=== PATIENT | male | born 1970 | race Caucasian/White ===

== ENCOUNTER 2016-09-06 15:56 | Inpatient (IN) ==
--- NOTE | 2016-09-06 16:34 | Emergency Department Note ---
Disposition Clinical Impression: Weakness of left leg, Weakness of left arm, Ataxia of left upper extremity Disposition: Admitted As Inpatient Condition: Fair General Adult HPI - General Chief complaint: ED Neuro Symptoms/Deficit Stated complaint: neuro symptoms 09/04 LKW Time Seen by Provider: 09/06/16 16:23 Source: patient Limitations: no limitations - History of Present Illness Pain Scale: 0 - Related Data Previous Rx's Medication Instructions Recorded Clindamycin [Cleocin] 600 mg PO TID #42 capsule 09/25/15 Meclizine [Antivert] 25 mg PO TID #20 tablet 09/25/15 Allergies Allergy/AdvReac Type Severity Reaction Status Date / Time No Known Drug Allergies Allergy See Verified 09/25/15 09:21 Comments Past Medical History - Past Medical History Medical history: Reports: diabetes, hyperlipidemia, hypertension Psychiatric history: Reports: no psych history - Social History Smoking Status: Never smoker Smokeless Tobacco Status: Yes (snuff) Alcohol use: Reports: none Drug use: Reports: none Physical Exam - General Limitations: no limitations General appearance: alert, in no apparent distress Course Vital Signs Temperature 98.1 F 09/06/16 16:17 Pulse Rate 98 09/06/16 16:17 Respiratory Rate 16 09/06/16 16:17 Blood Pressure 168/93 09/06/16 16:17 O2 Sat by Pulse Oximetry 98 09/06/16 16:17 Temperature 98.1 F 09/06/16 16:17 Pulse Rate 95 09/06/16 17:45 Respiratory Rate 16 09/06/16 17:45 Blood Pressure 140/90 09/06/16 17:45 O2 Sat by Pulse Oximetry 96 09/06/16 17:45 Oxygen Delivery Oxygen Delivery Room Air Medical Decision Making - Lab Data Result diagrams: 09/06/16 16:49 09/06/16 16:49 Lab Results 09/06/16 09/06/16 09/06/16 Range/Units 16:06 16:29 16:49 WBC 7.9 (4.3-11.1) K/mcL RBC 5.43 (4.19-5.50) M/mcL Hgb 15.3 (12.9-16.9) g/dL Hct 43.4 (37.5-50.1) % MCV 79.9 L (83.0-100.0) fL MCH 28.2 (28.0-33.3) pg MCHC 35.3 (31.6-35.5) g/dL RDW 12.3 (11.5-14.5) % Plt Count 207 (140-400) K/mcL MPV 10.3 (9.4-12.4) fL Immature Gran % 0.4 (0-4) % Seg Neutrophils % 60.7 % Lymphocytes % 27.5 % Monocytes % 9.5 % Eosinophils % 1.5 % Basophils % 0.4 % Neutrophils # 4.8 (1.6-8.9) K/mcL Lymphocytes # 2.2 (0.6-4.6) K/mcL Monocytes # 0.8 (0.0-1.3) K/mcL Eosinophils # 0.1 (0.0-0.6) K/mcL Basophils # 0.0 (0.0-0.2) K/mcL PT (9.4-12.1) Seconds INR APTT (26.0-36.0) Seconds Sodium (136-145) mEq/L Potassium (3.5-4.5) mEq/L Chloride (98-109) mEq/L Carbon Dioxide (19-29) mEq/L BUN (8-26) mg/dL Creatinine (0.72-1.25) mg/dL Est GFR ( Amer) (> 60) Est GFR (Non-Af Amer) (> 60) BUN/Creatinine Ratio (6-26) Glucose (70-99) mg/dL POC Glucose 309 H (58-89) Calculated Osmolality (280-300) Calcium (8.6-10.8) mg/dL Troponin I (0-0.03) ng/mL Urine Color Yellow (Yellow) Urine Clarity Clear (Clear) Urine pH 6.5 (5.0-8.0) pH Units Ur Specific [place] > 1.030 H (1.010-1.025) Urine Protein Negative (Neg-Trace) mg/dL Urine Glucose (UA) >=1000 H (Normal) mg/dL Urine Ketones Negative (Negative) mg/dL Urine Blood Negative (Negative) Urine Nitrite Negative (Negative) Urine Bilirubin Negative (Negative) Urine Urobilinogen Normal (Normal) mg/dL Ur Leukocyte Esterase Negative (Negative) Ur Culture Indicated? NO (NO) 09/06/16 09/06/16 09/06/16 Range/Units 16:49 16:49 16:49 WBC (4.3-11.1) K/mcL RBC (4.19-5.50) M/mcL Hgb (12.9-16.9) g/dL Hct (37.5-50.1) % MCV (83.0-100.0) fL MCH (28.0-33.3) pg MCHC (31.6-35.5) g/dL RDW (11.5-14.5) % Plt Count (140-400) K/mcL MPV (9.4-12.4) fL Immature Gran % (0-4) % Seg Neutrophils % % Lymphocytes % % Monocytes % % Eosinophils % % Basophils % % Neutrophils # (1.6-8.9) K/mcL Lymphocytes # (0.6-4.6) K/mcL Monocytes # (0.0-1.3) K/mcL Eosinophils # (0.0-0.6) K/mcL Basophils # (0.0-0.2) K/mcL PT 13.2 H (9.4-12.1) Seconds INR 1.2 APTT 32.2 (26.0-36.0) Seconds Sodium 135 L (136-145) mEq/L Potassium 3.7 (3.5-4.5) mEq/L Chloride 99 (98-109) mEq/L Carbon Dioxide 26 (19-29) mEq/L BUN 9 (8-26) mg/dL Creatinine 0.96 (0.72-1.25) mg/dL Est GFR ( Amer) > 60 (> 60) Est GFR (Non-Af Amer) > 60 (> 60) BUN/Creatinine Ratio 9 (6-26) Glucose 346 H (70-99) mg/dL POC Glucose (58-89) Calculated Osmolality 292 (280-300) Calcium 9.2 (8.6-10.8) mg/dL Troponin I 0.00 (0-0.03) ng/mL Urine Color (Yellow) Urine Clarity (Clear) Urine pH (5.0-8.0) pH Units Ur Specific [place] (1.010-1.025) Urine Protein (Neg-Trace) mg/dL Urine Glucose (UA) (Normal) mg/dL Urine Ketones (Negative) mg/dL Urine Blood (Negative) Urine Nitrite (Negative) Urine Bilirubin (Negative) Urine Urobilinogen (Normal) mg/dL Ur Leukocyte Esterase (Negative) Ur Culture Indicated? (NO) Attestation Statement - Attestation Attestation: I examined this patient and my medical decision-making was reviewed with the MENAGERIE CARETAKER/PA/Advanced Practice Nurse/Resident Physician. I agree with the documented findings, disposition and treatment plan as described except to the extent set forth below. [id number] time provided Patient presents with a three-day history of neurologic symptoms. He has a history of hypertension and diabetes. EKG reviewed by me. Patient resting comfortably at the time of my exam. Please see the resident's note for detailed neurologic exam
--- NOTE | 2016-09-06 16:37 | Emergency Department Note ---
Disposition Clinical Impression: Weakness of left leg, Weakness of left arm, Ataxia of left upper extremity Disposition: Admitted As Inpatient Condition: Fair Referrals: Fam Zafar DO [Primary Care Provider] - Forms: ED Satisfaction Letter Time of Disposition: 17:48 Neuro HPI - General Chief Complaint: ED Neuro Symptoms/Deficit Stated Complaint: neuro symptoms 09/04 LKW Time Seen by Provider: 09/06/16 16:23 Source: patient Mode of arrival: ambulatory Limitations: no limitations Nursing Notes Reviewed: Yes Vital Signs Reviewed: Yes - History of Present Illness HPI Narrative: Patient is a 46-year-old male with past medical history of hypertension, diabetes, high cholesterol. He presents today accompanied by his due to concerns of left upper extremity, left lower extremity, left facial weakness and garbled speech. states that the patient was at work on Wednesday came home and she noticed that he was "wobbly" and kept falling to the left. Apparently the patient did not notice that this is happening. also noticed that his left face was drooping. The left face droop resolved, but the next day, the patient had worsening problems with gait. The patient on today's presentation admits to left hand weakness, difficulty with ambulation, possible weakness of the left lower extremity. There is also tingling of LLE. He also admits to fatigue. Denies any chest pain, shortness of breath, nausea, vomiting , abdominal pain, fevers. denies any previous OH, stenting, previous stroke. However, there have been multiple strokes and heart attacks in the patient's relatives in the past. - Related Data Home Medications: Previous Rx's Medication Instructions Recorded Clindamycin [Cleocin] 600 mg PO TID #42 capsule 09/25/15 Meclizine [Antivert] 25 mg PO TID #20 tablet 09/25/15 Allergies/Adverse Reactions: Allergies Allergy/AdvReac Type Severity Reaction Status Date / Time No Known Drug Allergies Allergy See Verified 09/25/15 09:21 Comments Constitutional: Denies: fever ENT ED: Denies: ear pain, throat pain Cardiovascular: Denies: chest pain, palpitations, dyspnea on exertion Respiratory: Denies: cough, dyspnea, wheezes, hemoptysis Gastrointestinal: Denies: abdominal pain, nausea, vomiting, diarrhea Genitourinary: Denies: urgency, dysuria, frequency Musculoskeletal: Denies: back pain, neck pain Integumentary: Denies: rash Neurological: Reports: weakness, paresthesias. Denies: headache, numbness Endocrine: Reports: fatigue Past Medical History - Past Medical History Attestation: Yes The following information was validated with the patient. Source: patient Medical history: Reports: diabetes, hyperlipidemia, hypertension Psychiatric history: Reports: no psych history - Social History Smoking Status: Never smoker Smokeless Tobacco Status: Yes (snuff) Alcohol use: Reports: none Drug use: Reports: none Physical Exam - General Limitations: no limitations General appearance: alert, in no apparent distress - Head Head exam: atraumatic, normocephalic, normal inspection - Eye Eye exam: Present: normal appearance, PERRL, EOMI - ENT ENT exam: normal exam, normal oropharynx, mucous membranes moist, other (No facial droop appreciated) - Neck Neck exam: Present: normal inspection, full ROM, trachea midline - Chest Chest inspection: Present: normal inspection, symmetric chest wall rise - Respiratory Respiratory exam: Present: normal lung sounds bilaterally. Absent: respiratory distress, wheezes, stridor - Cardiovascular Cardiovascular exam: Present: regular rate, normal rhythm, normal heart sounds - Abdominal Exam Abdominal exam: Present: soft, Non-Tender. Absent: tenderness, distention, guarding, rebound, rigidity - Extremities Exam Extremities exam: Present: normal inspection. Absent: tenderness, pedal edema - Neurological Exam Neurological exam: Present: CN II-XII intact, other (Sleepy on exam. Cranial nerves II through XII intact. Patient had decreased strength in hip flexion, dorsiflexion and plantar flexion of the left foot. All of these were 4 over 5 in strength. Patient also had paresthesias of the left lower extremity. Patient had weakened dispensing and measuring optician strength 4 out of 5 on the left. No appreciable facial droop on neuro exam. Patient also had past pointing of left upper extremity when performing [id number] testing.) - Psychiatric Psychiatric exam: Present: normal affect, normal mood - Skin Skin exam: Present: warm, dry, intact, normal color Course Course Narrative: Patient was hypertensive on presentation. Physical exam shows: Sleepy on exam. Cranial nerves II through XII intact. Patient had decreased strength in hip flexion, dorsiflexion and plantar flexion of the left foot. All of these were 4 over 5 in strength. Patient also had paresthesias of the left lower extremity. Patient had weakened dispensing and measuring optician strength 4 out of 5 on the left. No appreciable facial droop on neuro exam. Patient also had past pointing of left upper extremity when performing [id number] testing. NIH 4. All these symptoms began 3 days ago. Patient is well past time for TPA. We will perform basic blood work, CT of the head to assess for any bleeds. Patient will need admission at this time for further workup of stroke. A CT of the head is negative, will recommend MRI of the head and MRA of the neck for further assessment. Concern for stroke, specifically in cerebellar region. 17:46 Lab workup not concerning. Head CT read as negative for any acute intracranial abnormality. We will admit the patient for further stroke workup as mentioned above, recommend MR of the head, MRA of the neck. Michelle Gill accepted for admission. Vital Signs Temperature 98.1 F 09/06/16 16:17 Pulse Rate 98 09/06/16 16:17 Respiratory Rate 16 09/06/16 16:17 Blood Pressure 168/93 09/06/16 16:17 O2 Sat by Pulse Oximetry 98 09/06/16 16:17 Temperature 98.1 F 09/06/16 16:17 Pulse Rate 98 09/06/16 16:17 Respiratory Rate 16 09/06/16 16:17 Blood Pressure 168/93 09/06/16 16:17 O2 Sat by Pulse Oximetry 98 09/06/16 16:17 Oxygen Delivery Oxygen Delivery Room Air Neuro Symptoms/Deficit - MDM Narrative Medical decision making narrative: Patient was hypertensive on presentation. Physical exam shows: Sleepy on exam. Cranial nerves II through XII intact. Patient had decreased strength in hip flexion, dorsiflexion and plantar flexion of the left foot. All of these were 4 over 5 in strength. Patient also had paresthesias of the left lower extremity. Patient had weakened dispensing and measuring optician strength 4 out of 5 on the left. No appreciable facial droop on neuro exam. Patient also had past pointing of left upper extremity when performing [id number] testing. NIH 4. All these symptoms began 3 days ago. Patient is well past time for TPA. We will perform basic blood work, CT of the head to assess for any bleeds. Patient will need admission at this time for further workup of stroke. A CT of the head is negative, will recommend MRI of the head and MRA of the neck for further assessment. Concern for stroke, specifically in cerebellar region. 17:46 Lab workup not concerning. Head CT read as negative for any acute intracranial abnormality. We will admit the patient for further stroke workup as mentioned above, recommend MR of the head, MRA of the neck. Michelle Gill accepted for admission. - Medical Records Medical records reviewed: Yes I reviewed the patient's medical records. - Lab Data Lab results reviewed: Yes I reviewed the patient's lab results. Result diagrams: 09/06/16 16:49 09/06/16 16:49 Lab Results 09/06/16 09/06/16 09/06/16 Range/Units 16:06 16:29 16:49 WBC 7.9 (4.3-11.1) K/mcL RBC 5.43 (4.19-5.50) M/mcL Hgb 15.3 (12.9-16.9) g/dL Hct 43.4 (37.5-50.1) % MCV 79.9 L (83.0-100.0) fL MCH 28.2 (28.0-33.3) pg MCHC 35.3 (31.6-35.5) g/dL RDW 12.3 (11.5-14.5) % Plt Count 207 (140-400) K/mcL MPV 10.3 (9.4-12.4) fL Immature Gran % 0.4 (0-4) % Seg Neutrophils % 60.7 % Lymphocytes % 27.5 % Monocytes % 9.5 % Eosinophils % 1.5 % Basophils % 0.4 % Neutrophils # 4.8 (1.6-8.9) K/mcL Lymphocytes # 2.2 (0.6-4.6) K/mcL Monocytes # 0.8 (0.0-1.3) K/mcL Eosinophils # 0.1 (0.0-0.6) K/mcL Basophils # 0.0 (0.0-0.2) K/mcL PT (9.4-12.1) Seconds INR APTT (26.0-36.0) Seconds Sodium (136-145) mEq/L Potassium (3.5-4.5) mEq/L Chloride (98-109) mEq/L Carbon Dioxide (19-29) mEq/L BUN (8-26) mg/dL Creatinine (0.72-1.25) mg/dL Est GFR ( Amer) (> 60) Est GFR (Non-Af Amer) (> 60) BUN/Creatinine Ratio (6-26) Glucose (70-99) mg/dL POC Glucose 309 H (58-89) Calculated Osmolality (280-300) Calcium (8.6-10.8) mg/dL Troponin I (0-0.03) ng/mL Urine Color Yellow (Yellow) Urine Clarity Clear (Clear) Urine pH 6.5 (5.0-8.0) pH Units Ur Specific [place] > 1.030 H (1.010-1.025) Urine Protein Negative (Neg-Trace) mg/dL Urine Glucose (UA) >=1000 H (Normal) mg/dL Urine Ketones Negative (Negative) mg/dL Urine Blood Negative (Negative) Urine Nitrite Negative (Negative) Urine Bilirubin Negative (Negative) Urine Urobilinogen Normal (Normal) mg/dL Ur Leukocyte Esterase Negative (Negative) Ur Culture Indicated? NO (NO) 09/06/16 09/06/16 09/06/16 Range/Units 16:49 16:49 16:49 WBC (4.3-11.1) K/mcL RBC (4.19-5.50) M/mcL Hgb (12.9-16.9) g/dL Hct (37.5-50.1) % MCV (83.0-100.0) fL MCH (28.0-33.3) pg MCHC (31.6-35.5) g/dL RDW (11.5-14.5) % Plt Count (140-400) K/mcL MPV (9.4-12.4) fL Immature Gran % (0-4) % Seg Neutrophils % % Lymphocytes % % Monocytes % % Eosinophils % % Basophils % % Neutrophils # (1.6-8.9) K/mcL Lymphocytes # (0.6-4.6) K/mcL Monocytes # (0.0-1.3) K/mcL Eosinophils # (0.0-0.6) K/mcL Basophils # (0.0-0.2) K/mcL PT 13.2 H (9.4-12.1) Seconds INR 1.2 APTT 32.2 (26.0-36.0) Seconds Sodium 135 L (136-145) mEq/L Potassium 3.7 (3.5-4.5) mEq/L Chloride 99 (98-109) mEq/L Carbon Dioxide 26 (19-29) mEq/L BUN 9 (8-26) mg/dL Creatinine 0.96 (0.72-1.25) mg/dL Est GFR ( Amer) > 60 (> 60) Est GFR (Non-Af Amer) > 60 (> 60) BUN/Creatinine Ratio 9 (6-26) Glucose 346 H (70-99) mg/dL POC Glucose (58-89) Calculated Osmolality 292 (280-300) Calcium 9.2 (8.6-10.8) mg/dL Troponin I 0.00 (0-0.03) ng/mL Urine Color (Yellow) Urine Clarity (Clear) Urine pH (5.0-8.0) pH Units Ur Specific [place] (1.010-1.025) Urine Protein (Neg-Trace) mg/dL Urine Glucose (UA) (Normal) mg/dL Urine Ketones (Negative) mg/dL Urine Blood (Negative) Urine Nitrite (Negative) Urine Bilirubin (Negative) Urine Urobilinogen (Normal) mg/dL Ur Leukocyte Esterase (Negative) Ur Culture Indicated? (NO) - Radiology Data Radiology results reviewed: Yes I reviewed the patient's radiology results. Head CT 09/06/16 16:42 IMPRESSION: No acute intracranial abnormality. D/ / Ty Santos MD / Ty Santos MD Interpreting Provider: Ty Santos MD - EKG Data EKG attestation: Yes I reviewed and interpreted this EKG. EKG results narrative: 09/06/2016 at 16:34. Sinus tachycardia. Rate 104. QTC 408. QRS 101. No acute ST elevation or depression. There are Q waves in leads 2, 3, aVF. NIH Stroke Scale - Level of Consciousness LOC: Drowsy, but arousable - LOC Questions LOC Questions: Answers both correctly - LOC Commands LOC Commands: Performs both correctly - Best Gaze Best Gaze: Normal - Visual Visual: No visual loss - Facial Palsy Facial Palsy: Normal - Motor Arms Motor Arm-Left: No drift for 10 seconds Motor Arm-Right: No drift for 10 seconds - Motor Legs Motor Leg-Left: No drift for 5 seconds Motor Leg-Right: No drift for 5 seconds - Limb Ataxia Limb Ataxia: Present in ONE limb - Sensory Sensory: Mild to moderate loss, "not as sharp" - Best Language Best Language: No aphasia - Dysarthria Dysarthria: Mild, slurs some words - Extinction and Inattention Extinction and Inattention: Normal - NIHSS Total Score NIHSS Total Score: 4 TPA Checklist - LKW: 3-4.5 hrs Add. Contraindications Patient/family understanding: The patient/family members have been counseled and understood the risk, benefit , and alternatives of treatment. S.Xiomara - Romero Situation: Demographics, MOA Background: Presenting Complaint, Relevant PMH, Meds, & Allergies Assessment: Vital Signs, Course and respsone to treatment, Exam Concerns, Patient/Family Expectation, Pertinant Lab Results, Outstanding Labs Recommendation: Barrier(s) to disposition, Recommendation based on pending studies, treatments, or consults S.B.A.Maynor Report Given to: Michelle Jasso Repor Time: 17:47
[2016-09-06 16:43] LABS: Bilirubin,Urine Negative (Negative); Blood,Urine Negative (Negative); Clarity,Urine Clear (Clear); Color,Urine Yellow (Yellow); Glucose,Urine (UA) >=1000 mg/dL (Normal); Ketones,Urine Negative (Negative); Leukocyte Esterase,Urine Negative (Negative); Nitrite,Urine Negative (Negative); PH,Urine 6.5 pH Units (5.0-8.0); Protein,Urine Negative (Neg-Trace); Specific Gravity,Urine > 1.030 (1.010-1.025); Urobilinogen,Urine Normal (Normal)
[2016-09-06 16:56] LABS: Basophils % 0.4 %; Eosinophils # 0.1 K/mcL (0.0-0.6); Eosinophils % 1.5 %; Hematocrit 43.4 % (37.5-50.1); Hemoglobin 15.3 g/dL (12.9-16.9); Immature Granulocytes % 0.4 % (0-4); Lymphocytes # 2.2 K/mcL (0.6-4.6); Lymphocytes % 27.5 %; Mean Corpuscular HGB Conc 35.3 g/dL (31.6-35.5); Mean Corpuscular Hemoglobin 28.2 pg (28.0-33.3); Mean Corpuscular Volume 79.9 fL (83.0-100.0); Mean Platelet Volume 10.3 fL (9.4-12.4); Monocytes # 0.8 K/mcL (0.0-1.3); Monocytes % 9.5 %; Neutrophils # 4.8 K/mcL (1.6-8.9); Platelet Count 207 K/mcL (140-400); Red Blood Count 5.43 M/mcL (4.19-5.50); Red Cell Distribution Width 12.3 % (11.5-14.5); Segmented Neutrophils % 60.7 %
[2016-09-06 17:00] LABS: INR 1.2; Prothrombin Time 13.2 Seconds (9.4-12.1)
[2016-09-06 17:03] LABS: Activated Partial Thrombo Time 32.2 Seconds (26.0-36.0)
[2016-09-06 17:06] LABS: BUN/Creatinine Ratio 9 (6-26); Blood Urea Nitrogen 9 mg/dL (8-26); Calcium 9.2 mg/dL (8.6-10.8); Carbon Dioxide 26 mEq/L (19-29); Chloride 99 mEq/L (98-109); Glucose 346 mg/dL (70-99); Osmolality,Calculated 292 (280-300); Potassium 3.7 mEq/L (3.5-4.5); Sodium 135 mEq/L (136-145); eGFR For African Americans > 60 (> 60); eGFR For Non-African Americans > 60 (> 60)
[2016-09-06] MEDS ORDERED: Naloxone 0.4 MG/ML INJ IVP PRN (20:10)
[2016-09-06] MEDS ORDERED: Aspirin 325 MG TABLET PO ONE (20:54)
[2016-09-06] MEDS ORDERED: D5% in Water 1,000 ML IV PRN (21:05)
[2016-09-06] MEDS ORDERED: *HR* Dextrose 50 % in Water (Syg) 50 ML SYRINGE IVP PRN (21:05)
[2016-09-06] MEDS ORDERED: Dextrose Gel 15 GM PO PRN ×2 (21:05)
--- NOTE | 2016-09-06 21:25 | Internal Med History&Physical ---
Date of Encounter: 09/07/16 Time of Encounter: 20:00 Assessment and Plan (1) CVA (cerebral vascular accident) Current visit: Yes Status: Acute 1 patient began to experience left-sided weakness and slurred speech and facial droop 3 days ago. Patient has history of hypertension diabetes she is noncompliant with medications. Patient has strong neurovascular family history his father having CVA last year as well as a sister that from brain aneurysm. Facial droop has resolved CT of head was negative for any intracranial abnormalities. Suspect this is acute CVA we will obtain MRI as well as MRA of head and neck 2 we will give dose of aspirin now and continue daily. 3 we will start her on atorvastatin and check lipid profile 4. Monitor neuro status 5 consult neurology 6 consult PTOT and speech Qualifiers: CVA mechanism: unspecified Qualified Code(s): I63.9 - Cerebral infarction, unspecified (2) Diabetes mellitus Current visit: Yes Status: Acute 1 patient is noncompliant with medication regime. Does not check his blood sugars. Does not take his medications and he has not seen a physician in some time. We will obtain A1c. 2. Check blood sugars before meals and at bedtime with sliding scale coverage: 17 postprandial S1 80 3 diabetic diet Qualifiers: Diabetes mellitus type: type 2 Diabetes mellitus complication status: without complication Diabetes mellitus chcf insulin use: without terminal carman use Qualified Code(s): E11.9 - Type 2 diabetes mellitus without complications (3) HTN (hypertension) Current visit: Yes Status: Acute 1 patient is noncompliant with medications, systolic 140/150 will continue to monitor. Qualifiers: Hypertension type: essential hypertension Qualified Code(s): I10 - Essential (primary) hypertension (4) Hyperlipemia Current visit: Yes Status: Acute 1 we will check lipid panel in a.m. start on atorvastatin Qualifiers: Hyperlipidemia type: unspecified Qualified Code(s): E78.5 - Hyperlipidemia , unspecified (5) DVT prophylaxis Current visit: Yes Status: Acute 1 HEBERT [facility] Internal Medicine - H&P: HPI Chief complaint: L sided weakness slurred speech Admitted From: Emergency Dept Plans for Post Hospital Care: Home History of present illness: Mr. Moore is a 46 year old male past medical history of diabetes hypertension hyperlipidemia. According to the patient he came home from work on Wednesday evening and his noticed that he was wobbly and the Following to the left. He also had left-sided weakness and a left facial droop as well as garbled speech. The patient was not aware that these changes were happening. He went to bed and by Wednesday morning his left facial droop had resolved however he continued to be unsteady on his feet leading to the left side as well as continued weakness in his left arm, unable to hold onto items. His speech continued to be garbled. The symptoms continued all through Wednesday and presented today to the ER for evaluation. According to ER notes patient appeared sleepy and examined cranial nerves were intact he continued to display decreased strength 4 over 5 in his left side. He had weak lute packer or applier left side for about 5 there was no facial droop noted NIH is 4. Since the symptoms started 3 days ago the patient was well past tPA he has CT of his head which was negative for any acute intracranial abnormality. Lab work was all unremarkable he is admitted for further workup and evaluation. Upon assessment the patient denies any pain or discomfort. He is alert oriented follows simple commands cranial nerves II through XII are intact. The patient does have slurred speech and left pronator drift decreased lute packer or applier 4 out of 5 left hand, strength in upper and lower extremities left side are 4 over 5. The patient does admit that he does not check his blood sugars and is not compliant with any of his medications he has not seen a physician in some time. He denies any vision or hearing changes , numbness tingling, difficulty swallowing or headaches At present time the patient is hemodynamically stable. I reviewed this case with who agrees with plan Past Med Surg Social Fam HX - Past Medical History Medical history: diabetes, hyperlipidemia, hypertension Psychiatric history: no psych history - Past Surgical History Surgical History: no surgical history - Social History Smoking Status: Never smoker Smokeless Tobacco Status: Yes (snuff) Alcohol use: none Drug use: none - Family History Father Living Status: Still Living Hx Family Neurologic Disorders: Yes (mini-stroke) Sister Living Status: Cause of : Brain anyeursm Internal Medicine - H&P: Meds Amlodipine Besylate 5 mg PO DAILY 09/07/16 [History] Citalopram Hydrobromide [Citalopram HBr] 10 mg PO DAILY 09/07/16 [History] Losartan/Hydrochlorothiazide [Hyzaar 100-25 Tablet] 0.5 each PO DAILY 09/07/16 [ History] Metformin HCl [Glucophage] 1,000 mg PO BID 09/07/16 [History] Pravastatin Sodium [Pravachol] 40 mg PO DAILY 09/07/16 [History] Allergies No Known Drug Allergies Allergy (Verified 09/25/15 09:21) See Comments All Systems PM: A 10-system review of systems was performed and is negative for pertinent findings except as documented above in the HPI. - Constitutional Constitutional: no chills, no fever(s), no night sweats - EENT Eyes: no change in vision, no discharge, no pain, no photophobia - Cardiovascular Cardiovascular ROS IM: no chest pain, no diaphoresis, no dyspnea, no lightheadedness, no palpitations, no syncope - Respiratory Respiratory: no cough, no dyspnea, no wheezing, no excessive phlegm production - Gastrointestinal Gastrointestinal: no abdominal pain, no diarrhea, no hematemesis, no hematochezia, no melena, no nausea, no vomiting - Musculoskeletal Musculoskeletal ROS IM: no numbness, no tingling - Integumentary Integumentary IM: no rash, no unusual bruising - Neurological Neurological ROS: abnormal gait, abnormal speech, paresthesias, weakness - Constitutional Vitals: Temp Pulse Resp BP Pulse Ox 98.2 F 88 18 158/109 98 09/06/16 19:09 09/06/16 19:09 09/06/16 19:09 09/06/16 19:09 09/06/16 19:09 General appearance: Present: A&O X 3, answers questions appropriately - Head Head exam: Present: atraumatic, normocephalic - Eye Eye exam: Present: PERRL, conjuntiva pink, sclera anicteric Pupils: Present: PERRL - Neck Neck exam general surgery: Present: supple, trachea midline. Absent: lymphadenopathy - Respiratory Respiratory exam: Present: CTAB. Absent: accessory muscle use, rales, rhonchi, wheezes - Cardiovascular Cardiovascular exam: Present: RRR, +S1, +S2. Absent: diastolic murmur, gallop, rubs, systolic murmur - GI/Abdominal GI/Abdominal exam: Present: normal bowel sounds, soft, no peritoneal signs. Absent: distended, tenderness - Extremities Exam Extremities exam: Present: warm, radial pulses palpable and symetrical. Absent : calf tenderness, cyanotic, pedal edema - Neurological Exam Neurological exam: Present: CN II-XII intact, oriented X3, no focal deficits, pronater drift, speech deficit. Absent: facial droop - Expanded Neurological Exam Speech: Present: slurred Neuro motor strength exam: LUE: 4, RUE: 5, LLE: 4, RLE: 5 Coma Scale Motor Response: Obeys Commands Coma Scale Verbal Response: Oriented Internal Med - H&P Results - Labs CBC & Chem 7: 09/06/16 16:49 09/06/16 16:49 - Diagnostic Studies CT scan - head Additional comments: Negative for any intracranial abnormality per radiology read
[2016-09-06 21:28] LABS: Hemoglobin A1C 8.7 %
[2016-09-06] MEDS: Insulin LISPRO 300 UNITS/3 ML VIAL SQ SCH (21:52)
[2016-09-07 04:14] LABS: Basophils % 0.5 %; Eosinophils # 0.2 K/mcL (0.0-0.6); Eosinophils % 2.1 %; Hematocrit 41.4 % (37.5-50.1); Hemoglobin 14.4 g/dL (12.9-16.9); Immature Granulocytes % 0.3 % (0-4); Lymphocytes # 2.9 K/mcL (0.6-4.6); Lymphocytes % 37.2 %; Mean Corpuscular HGB Conc 34.8 g/dL (31.6-35.5); Mean Corpuscular Hemoglobin 27.8 pg (28.0-33.3); Mean Corpuscular Volume 79.9 fL (83.0-100.0); Mean Platelet Volume 10.3 fL (9.4-12.4); Monocytes # 0.8 K/mcL (0.0-1.3); Monocytes % 10.4 %; Neutrophils # 3.8 K/mcL (1.6-8.9); Platelet Count 201 K/mcL (140-400); Red Blood Count 5.18 M/mcL (4.19-5.50); Red Cell Distribution Width 12.1 % (11.5-14.5); Segmented Neutrophils % 49.5 %
[2016-09-07 04:33] LABS: BUN/Creatinine Ratio 10 (6-26); Blood Urea Nitrogen 9 mg/dL (8-26); Calcium 9.5 mg/dL (8.6-10.8); Carbon Dioxide 25 mEq/L (19-29); Chloride 102 mEq/L (98-109); Chol/HDL Ratio 5.2 (0-4.9); Cholesterol 141 mg/dL (< 200); Glucose 310 mg/dL (70-99); HDL Cholesterol 27 mg/dL (40-59); LDL Cholesterol,Calculated 84 mg/dL (0-99); Osmolality,Calculated 294 (280-300); Potassium 3.8 mEq/L (3.5-4.5); Sodium 137 mEq/L (136-145); Triglycerides 151 mg/dL (< 150); eGFR For African Americans > 60 (> 60); eGFR For Non-African Americans > 60 (> 60)
[2016-09-07] MEDS: Pantoprazole 40 MG VIAL IVP SCH (08:45)
[2016-09-07] MEDS: Aspirin 81 MG TAB.CHEW PO SCH (08:46)
[2016-09-07] MEDS: Insulin LISPRO 300 UNITS/3 ML VIAL SQ SCH ×4 (08:46→20:05)
--- NOTE | 2016-09-07 12:02 | ECHO - Doppler Report ---
Echo with Saline Contrast Name: Scooter Moore Date of Study: 09/07/2016 Date: 1970 Ht: 70.0 in Medical Record#: [id number] Age: 46 Wt: 225.0 lb Gender: Male BSA: 2.19 Order #: [id number] Location: [facility] Room #: 3B36 Reading Physician: Ty Mcdonald DO, AWAIS, MARY PEÑA Sleep Technologist: MARGUERITE BledsoeT, RDTJ Ordering Physician: Gaye Leavitt CNP Primary Physician: Fam Zafar DO Indications: Cerebrovascular Accident Impressions: LVEF 65%. Normal LV chamber size and function. Mild concentric left ventricular hypertrophy. Mild left ventricular diastolic dysfunction. Normal right ventricular structure and function. No significant valvular dysfunction. No evidence of PFO with agitated saline contrast. Left Ventricular Wall Motion: Rest Echo Findings All wall segments showed normal motion. Findings: Study Quality * Technically adequate exam. ECG Findings * Normal sinus rhythm. Left Ventricle * LVEF 65%. * Normal LV chamber size and function. * Mild concentric left ventricular hypertrophy. * Mild left ventricular diastolic dysfunction. Right Ventricle * Normal right ventricular structure and function. Left Atrium * Normal left atrial size. Right Atrium * Normal right atrial size. Interatrial Septum * No evidence of PFO with agitated saline contrast. Aortic Valve * Trileaflet aortic valve with normal function. * No aortic regurgitation. * No aortic stenosis. Mitral Valve * Normal mitral valve structure and function. * No mitral regurgitation. * No mitral stenosis. Tricuspid Valve * Normal tricuspid valve structure and function. * * No tricuspid regurgitation. * No evidence of pulmonary hypertension. Pulmonic Valve * Pulmonic valve is not well visualized. Aorta * Normally sized aortic root. Pericardium * The pericardium appears normal. IVC * Normal IVC dimensions and inspiratory collapse. Pulmonary Artery * Normal visualized portions of the main pulmonary artery. History Hypertension Diabetes Hypercholesteremia Family History of CAD Contrast: Agitated saline 20 ml. Measurements: BP: 145/ 87 2D Normal Values RVIDd: 3.10 cm <2.7 cm IVSd: 1.30 cm 0.6 - 1.0 cm LVIDd: 4.00 cm 3.7 - 5.6 cm LVPWd: 1.30 cm 0.6 - 1.1 cm LVIDs: 2.60 cm 1.5 - 3.6 cm AO: 2.90 cm < 4.0 cm LA: 3.50 cm 2.0 - 4.0cm %FS: 35.00 cm >25 % LA volume: 29 Mitral Valve Peak E:.78 m/sec Peak A:1.04 m/sec E/A Ratio:0.8 Updated by Ty Mcdonald DO, AWAIS, MARY PEÑA on 09/07/2016 11:57:22 AM electronically signed on 09/07/2016 11:58:13 AM with status of Final Wall Motion Hernandez: 1=Normal, 2=Hypokinesis, 3=Akinesis, 4=Dyskinesis, 5=Aneurysmal, 6=Hyperkinetic, X=Not Visualized (Blank)=Missing
[2016-09-07] MEDS: *HR* Heparin 5,000 UNIT/ML VIAL SQ SCH ×2 (13:47→18:18)
--- NOTE | 2016-09-07 14:24 | Internal Med Progress Note ---
Date of Encounter: 09/07/16 Time of Encounter: 13:30 - Assessment and plan (1) CVA (cerebral vascular accident) Current Visit: Yes Status: Acute Assessment and plan: Patient now asymptomatic. No focal neurological weaknesses or speech deficits noted on examination. Head CT negative. Hypertensive this morning however blood pressure came down after his morning meds. Urinalysis negative. Echocardiogram unremarkable with ejection fraction 65% and mild diastolic dysfunction. Patient euvolemic on examination. MRA and MRI of the brain and neck pending. Neurology on board. OT and PT have recommended outpatient therapy which will need to be set up by his primary care provider. Disposition pending clinical outcomes. Possible discharge tomorrow. ITS Impressions Head CT 09/06/16 16:42 IMPRESSION: No acute intracranial abnormality. D/ / Ty Santos MD / Ty Santos MD Interpreting Provider: Ty Santos MD Echocardiogram impressions: LVEF 65%. Normal LV chamber size and function. Mild concentric left jugular hypertrophy. Mild left ventricular diastolic dysfunction. Normal right ventricular structure and function. No significant valve dysfunction. No Evidence of PFO with agitated saline contrast. Qualifiers: CVA mechanism: unspecified Qualified Code(s): I63.9 - Cerebral infarction, unspecified (2) Weakness of left leg Current Visit: Yes Status: Resolved (3) Weakness of left arm Current Visit: Yes Status: Resolved (4) DVT prophylaxis Current Visit: Yes Status: Acute Assessment and plan: Subcutaneous heparin (5) Diabetes mellitus Current Visit: Yes Status: Chronic Assessment and plan: Poorly controlled at home with an A1c of 8.7%. Patient readily endorses noncompliance. Will continue to attend education while he is admitted. Continue sliding-scale while admitted. Qualifiers: Diabetes mellitus type: type 2 Diabetes mellitus complication status: without complication Diabetes mellitus mcfp insulin use: without mcfp use Qualified Code(s): E11.9 - Type 2 diabetes mellitus without complications (6) HTN (hypertension) Current Visit: Yes Status: Chronic Assessment and plan: Hypertensive this morning however blood pressure came down after his a.m. meds, will continue to trend and adjust medications as indicated. Qualifiers: Hypertension type: essential hypertension Qualified Code(s): I10 - Essential (primary) hypertension (7) Hyperlipemia Current Visit: Yes Status: Chronic Assessment and plan: Lipid panel unremarkable, recommend continuation of statin and low-cholesterol diet Qualifiers: Hyperlipidemia type: unspecified Qualified Code(s): E78.5 - Hyperlipidemia , unspecified - Subjective Interval history: Patient seen and examined. On examination, patient sitting upright in bed watching television. Patient denies weakness or difficulty with his speech. He denies any vision changes. He states he is eating well. - Constitutional Vitals: Temp Pulse Resp BP Pulse Ox 97.6 F 89 16 138/80 95 09/07/16 14:14 09/07/16 14:14 09/07/16 14:14 09/07/16 14:14 09/07/16 14:14 General appearance: Present: A&O X 3, pleasant, no acute distress, answers questions appropriately - Head Head exam: Present: atraumatic, normocephalic - Eye Eye exam: Present: PERRL, conjuntiva pink, sclera anicteric Pupils: Present: PERRL - Neck Neck exam general surgery: Present: supple, trachea midline. Absent: lymphadenopathy - Respiratory Respiratory exam: Present: CTAB. Absent: accessory muscle use, rales, respiratory distress, rhonchi, wheezes - Cardiovascular Cardiovascular exam: Present: RRR, +S1, +S2. Absent: diastolic murmur, gallop, rubs, systolic murmur - GI/Abdominal GI/Abdominal exam: Present: normal bowel sounds, soft, no peritoneal signs. Absent: distended, tenderness - Extremities Exam Extremities exam: Present: warm, radial pulses palpable and symetrical. Absent : calf tenderness, cyanotic, pedal edema - Neurological Exam Neurological exam: Present: alert, CN II-XII intact, oriented X3, no focal deficits, strengths equal and symetr throughout. Absent: pronater drift, facial droop, speech deficit - Skin Skin exam: Present: dry, intact, normal color, warm Internal Medicine: Result - Labs CBC & Chem 7: 09/07/16 04:03 09/07/16 04:03 Labs: Short CBC 09/07/16 Range/Units 04:03 WBC 7.8 (4.3-11.1) K/mcL Hgb 14.4 (12.9-16.9) g/dL Hct 41.4 (37.5-50.1) % Plt Count 201 (140-400) K/mcL Neutrophils # 3.8 (1.6-8.9) K/mcL BMP 09/07/16 04:03 Sodium 137 Potassium 3.8 Chloride 102 Carbon Dioxide 25 BUN 9 Creatinine 0.94 Glucose 310 H Calcium 9.5 - ABG Interpretation ABG results: PT/INR, D-dimer PT 13.2 Seconds (9.4-12.1) H 09/06/16 16:49 - VTE Documentation of Mechanical Device: Graduated compression elastic hosiery Consult Discharge Plan - Plan Referrals: Fam Zafar DO [Primary Care Provider] -
[2016-09-07] MEDS ORDERED: Acetaminophen 325 MG TABLET PO PRN (16:16)
--- NOTE | 2016-09-07 18:50 | Neurology Progress Note ---
Date of Encounter: 09/07/16 Time of Encounter: 18:48 Subjective Interval history: Patient is currently out of his room for testing. I will perform a complete neurologic consultation tomorrow. Sridhar Zafar D.O. Objective - Constitutional Vitals: Temp Pulse Resp BP Pulse Ox 97.8 F 88 16 134/90 95 09/07/16 18:00 09/07/16 18:00 09/07/16 18:00 09/07/16 18:00 09/07/16 14:46 - VTE Documentation of Mechanical Device: Graduated compression elastic hosiery Results - Laboratory Findings CBC and BMP: 09/07/16 04:03 09/07/16 04:03 Abnormal lab findings: Abnormal lab results MCV 79.9 fL (83.0-100.0) L 09/07/16 04:03 MCH 27.8 pg (28.0-33.3) L 09/07/16 04:03 PT 13.2 Seconds (9.4-12.1) H 09/06/16 16:49 Glucose 310 mg/dL (70-99) H 09/07/16 04:03 POC Glucose 327 (58-89) H 09/07/16 16:24 Hemoglobin A1c 8.7 % (-5.6) H 09/06/16 16:49 Triglycerides 151 mg/dL (< 150) H 09/07/16 04:03 HDL Cholesterol 27 mg/dL (40-59) L 09/07/16 04:03 Cholesterol/HDL Ratio 5.2 (0-4.9) H 09/07/16 04:03 Ur Specific [place] > 1.030 (1.010-1.025) H 09/06/16 16:06 Urine Glucose (UA) >=1000 mg/dL (Normal) H 09/06/16 16:06 Consult Discharge Plan - Plan Referrals: Fam Zafar DO [Primary Care Provider] -
--- NOTE | 2016-09-07 19:41 | Electrocardiograph Report ---
[address] [place] [address] Test Date: 2016-09-06 Pat Name: Scooter Moore Department: 105 Room: 3B Gender: M Prototype Model Maker: : 1970 Requested By: Naina Soto Order Number: [id number] Reading MD: Ty Mcdonald DO Measurements Intervals [place] Rate: 104 P: 29 RI: 140 QRS: -28 QRSD: 101 T: 37 QT: 347 QTc: 408 Interpretive Statements SINUS TACHYCARDIA INFERIOR MYOCARDIAL INFARCTION, PROBABLY OLD Electronically Signed On 09-07-2016 19:39:33 EST by Ty Mcdonald DO
[2016-09-08] MEDS: *HR* Heparin 5,000 UNIT/ML VIAL SQ SCH (05:19)
--- NOTE | 2016-09-08 07:16 | Neurology - Consult Note ---
Date of Encounter: 09/08/16 Time of Encounter: 07:11 Assessment and Plan (1) Acute brainstem infarction Current Visit: Yes Status: Acute This gentleman has unfortunately experienced an acute pontine infarct. Certainly he is very young for this type of event however it seems that he may have a family history of accelerated athero-sclerotic vascular disease, and he also has other risk factors including uncontrolled hypertension, and uncontrolled diabetes. His hemoglobin A1c was 8.7, and he admits that he does not take his medication is recommended. He also uses smokeless tobacco. I am concerned that he does have evidence of atherosclerotic disease in the posterior circulation. Echo cardiogram was negative. Recommend starting him on Plavix 75 mg daily which is reportedly superior for events occurring in the posterior circulation. Strict management of his risk factors as paramount. We will also recommend a hypercoagulable workup, we will go ahead and order a CTA of the brain and neck is recommended by radiology. I would also recommend that this gentleman see a neuro-interventionalist, perhaps Dr. Cohen at [facility], to consider whether or not additional intervention may be necessary to reduce this gentleman's risk for future events. Tobacco cessation and will also be paramount. Stroke protocol orders during hospitalization History of Present Illness HPI: Mr. Moore is a 46 year old male who was seen for neurologic consultation secondary to an acute pontine infarct. The event actually occurred 3 days of soap prior to being admitted to the hospital when he began to experience slurring of the speech left facial droop and clumsiness of the left upper extremity. The facial droop has improved however he maintains clumsiness of left upper extremity and dysarthric speech. He states that he had a mild headache on the day of admission however this is since resolved. He denies any visual changes. He does have a known history of diabetes which is poorly controlled hypertriglyceridemia and hypertension. He also does smokeless tobacco, he denies recreational drugs. He denies taking aspirin prior to this event. MRI scan of the brain with diffusion imaging does reveal an acute left pontine infarct, with a smaller area of infarction in the left centrum semiovale. Echocardiogram was unrevealing. MRA scanning reveals mild irregular narrowing of the origin of the basilar artery as well as of the right vertebral artery. CT scan of the brain was recommended for further assessment of this. Past Med Surg Social Fam HX - Past Medical History Medical history: diabetes, hyperlipidemia, hypertension Psychiatric history: no psych history - Past Surgical History Surgical History: no surgical history - Social History Smoking Status: Never smoker Smokeless Tobacco Status: Yes (snuff) Alcohol use: none Drug use: none - Family History Father Living Status: Still Living Hx Family Neurologic Disorders: Yes (mini-stroke) Sister Living Status: Cause of : Brain anyeursm Medications and Allergies Amlodipine Besylate 5 mg PO DAILY 09/07/16 [History] Citalopram Hydrobromide [Citalopram HBr] 10 mg PO DAILY 09/07/16 [History] Losartan/Hydrochlorothiazide [Hyzaar 100-25 Tablet] 0.5 each PO DAILY 09/07/16 [ History] Metformin HCl [Glucophage] 1,000 mg PO BID 09/07/16 [History] Pravastatin Sodium [Pravachol] 40 mg PO DAILY 09/07/16 [History] Allergies No Known Drug Allergies Allergy (Verified 09/25/15 09:21) See Comments All Systems: A 10-system review of systems was performed and is negative for pertinent findings except as documented above in the HPI. Review of Systems: 10 point review of systems is consistent with a history of present illness and otherwise negative. Physical Examination - Vital Signs Vital Signs: Initial Vital Signs Temp Pulse Resp BP Pulse Ox 98.1 F 98 16 168/93 98 09/06/16 16:17 09/06/16 16:17 09/06/16 16:17 09/06/16 16:17 09/06/16 16:17 - Neurologic Motor examination - right side: 5/5: deltoids, biceps, triceps, wrist flexion, wrist extension, business improvement manager, hip flexors, tibialis Anterior, quadriceps, toe extension (EHL), plantarflexion Motor examination - left side: 3/5: deltoids, biceps, triceps, hip flexors, business improvement manager , 4/5: quadriceps, tibialis Anterior, toe extension (EHL), plantarflexion Detailed sensory examination: other (There is hypoesthesia of the left upper extremity.) Reflex and gait examination: other (Deep tendon reflexes are diminished throughout.) Mental Status Examination: awake, alert, oriented to person, oriented to place, oriented to time, follows commands appropriately, answers questions appropriately, no agnosia, no aphasia, no aproxia Cranial nerve examination: PERRL, EOMI, visual wyatt intact, corneal reflexes brisk symmetrically, mastication intact, no facial asymmetry is present, hearing is intact symmetrically Ataxia: left upper extremity Results - Laboratory Findings CBC and BMP: 09/07/16 04:03 09/07/16 04:03 Abnormal lab findings: Abnormal lab results MCV 79.9 fL (83.0-100.0) L 09/07/16 04:03 MCH 27.8 pg (28.0-33.3) L 09/07/16 04:03 PT 13.2 Seconds (9.4-12.1) H 09/06/16 16:49 Glucose 310 mg/dL (70-99) H 09/07/16 04:03 POC Glucose 267 (58-89) H 09/07/16 19:53 Hemoglobin A1c 8.7 % (-5.6) H 09/06/16 16:49 Triglycerides 151 mg/dL (< 150) H 09/07/16 04:03 HDL Cholesterol 27 mg/dL (40-59) L 09/07/16 04:03 Cholesterol/HDL Ratio 5.2 (0-4.9) H 09/07/16 04:03 Ur Specific [place] > 1.030 (1.010-1.025) H 09/06/16 16:06 Urine Glucose (UA) >=1000 mg/dL (Normal) H 09/06/16 16:06 Consult Discharge Plan - Plan Referrals: Fam Zafar DO [Primary Care Provider] -
[2016-09-08] MEDS: Aspirin 81 MG TAB.CHEW PO SCH (08:21)
[2016-09-08] MEDS: Pantoprazole 40 MG VIAL IVP SCH (08:21)
[2016-09-08] MEDS: Insulin LISPRO 300 UNITS/3 ML VIAL SQ SCH ×2 (08:21→12:49)
[2016-09-08 11:49] VITALS: BP 132/79
--- NOTE | 2016-09-08 14:28 | Discharge Summary ---
Date of Encounter: 09/08/16 Time of Encounter: 14:00 - Discharge Diagnosis (1) Acute brainstem infarction Priority: Primary Status: Acute Comments: Brain MRI consistent with acute pontine infarct. Patient continues to complain of left gas examiner strength weakness and mild left leg weakness. Seen and evaluated by occupational physical therapy both of whom recommended outpatient therapy that will need to be set up by his primary care provider. Given moderate stenosis seen on MRA of head and neck, neurology has recommended referring the patient to at [facility] for outpatient followup with neurointerventionalist. Regarding risk factor modification, patient readily endorses noncompliance with his diabetes as well as with monitoring his blood pressure. Education given during this visit. We will add Plavix to his regimen. (2) CVA (cerebral vascular accident) Priority: Primary Status: Acute Qualifiers: CVA mechanism: unspecified Qualified Code(s): I63.9 - Cerebral infarction, unspecified (3) Weakness of left leg Priority: Primary Status: Acute Comments: mild weakness on examination left hand 3/5- he is right handed; right leg 5/5. OT and PT recommend outpatient therapy. (4) Weakness of left arm Priority: Primary Status: Acute (5) DVT prophylaxis Priority: Primary Status: Acute Comments: Subcutaneous heparin while admitted (6) Diabetes mellitus Priority: Secondary Status: Chronic Comments: Poorly controlled at home with an A1c of 8.7%. Patient readily endorses noncompliance. Educated while admitted; followup outpatient. Qualifiers: Diabetes mellitus type: type 2 Diabetes mellitus complication status: without complication Diabetes mellitus mcfp insulin use: without beet flumer use Qualified Code(s): E11.9 - Type 2 diabetes mellitus without complications (7) HTN (hypertension) Priority: Secondary Status: Chronic Comments: Continue home medications of losartan/HCTZ 100/25, and amlodipine 5 mg daily. Recommend daily blood pressure checks at home, and following up outpatient. Qualifiers: Hypertension type: essential hypertension Qualified Code(s): I10 - Essential (primary) hypertension (8) Hyperlipemia Priority: Secondary Status: Chronic Comments: Lipid panel unremarkable. Recommend continue statin and low-cholesterol diet. Qualifiers: Hyperlipidemia type: unspecified Qualified Code(s): E78.5 - Hyperlipidemia , unspecified - Discharge Medications Prescriptions: Aspirin 81 mg PO DAILY #30 tab.chew Clopidogrel Bisulfate [Plavix] 75 mg PO DAILY #30 tablet Home Medications: Amlodipine Besylate 5 mg PO DAILY 09/07/16 [History] Citalopram Hydrobromide [Citalopram HBr] 10 mg PO DAILY 09/07/16 [History] Losartan/Hydrochlorothiazide [Hyzaar 100-25 Tablet] 0.5 each PO BID 09/07/16 [ History] Metformin HCl [Glucophage] 1,000 mg PO BID 09/07/16 [History] Pravastatin Sodium [Pravachol] 40 mg PO DAILY 09/07/16 [History] Aspirin 81 mg PO DAILY #30 tab.chew 09/08/16 [Rx] Clopidogrel Bisulfate [Plavix] 75 mg PO DAILY #30 tablet 09/08/16 [Rx] Allergies/Adverse Reactions: Allergies No Known Drug Allergies Allergy (Verified 09/08/16 08:59) See Comments Procedures/tests Complete & Pending: Procedures Performed prior 72 hours Category Date Time Status CT angio head [CT] Stat Cat Scan 09/08/16 07:[address] angio neck [CT] Stat Cat Scan 09/08/16 07:25 Draft MR angio head wo con [MR] Routine MRI 09/07/16 17:53 Completed MR angio neck wo/w con [MR] Routine MRI 09/07/16 17:53 Completed MR head/brain wo con [MR] Routine MRI 09/07/16 17:53 Completed ECG 12 lead ECG [ECG] Routine Y 09/06/16 16:34 Completed EV echocardiogram Routine Y 09/07/16 21:01 Completed Date of admission: 09/06/16 20:46 Primary care physician: Fam Zafar Consults: 09/06/16 21:01 Consult to Physical Therapy [CONS] Routine Comment: Evaluate, develop and implement POC 09/06/16 21:04 Consult to Neurology [CONS] Routine Consulting Provider: [facility] Reason for Consult: L side weaknes facial droop, slurred speech that began 3 days ago Time Notified: 21:05 Call Completed: No 09/06/16 21:19 Consult to Occupational Therapy [CONS] Routine Comment: Evaluate, develop and implement POC 09/06/16 21:20 Consult to Speech Therapy [CONS] Routine Comment: Evaluate, develop and implement POC Reason for Consult: slurred speech- stroke sx Time Notified: 21:21 Call Completed: No Discharging clinician: Naina Soto Anticipated date of discharge: 09/08/16 (OT PT rec outpatient treatment) - Patient Status Disposition: Home, Self-Care Condition: Fair Functional capacity at discharge: independent ambulation Overall status at discharge: patient is progressing back to baseline - Discharge Instructions Follow Up With: Fam Zafar DO [Primary Care Provider] - Montez Cohen [Non-Partnered Physician] - Additional Instructions: Follow-up with primary care provider within one to two weeks follow-up with Dr. Cohen at [facility] when available. - Diet and Activity Activity: increase activity as tolerated, return to work once cleared by your PCP/specialist Diet: diabetic diet, low fat, low cholesterol, low salt diet Hospital course: Mr. Moore is a 46 year old male with past medical history of uncontrolled diabetes, uncontrolled hypertension, and hyperlipidemia. Patient stated he came home from work on Wednesday evening and his noticed that he was wobbly and while ambulating he would fall to the left. He at that time he also had left-sided weakness and left-sided facial droop as well as garbled speech. He went to bed that night and by Wednesday morning, the left-sided facial droop had resolved. He continued to be unsteady on his feet and continued to have weakness in his left arm. He was unable to hold items in his left hand. His speech continued to be garbled. The symptoms continued all throughout Wednesday and he presented to the emergency department on Wednesday for evaluation. Decreased gas examiner strength in his left hand as well as mild weakness in his left leg was noted in the emergency department. His speech was clear and intelligible. Workup in the emergency department unremarkable. Head CT negative. Patient was admitted to the hospitalist service for further evaluation and management. Urinalysis negative. Echocardiogram unremarkable with ejection fraction 65% and mild diastolic dysfunction. Patient euvolemic on examination. Brain MRI revealed acute ischemic plaque in her infarcts in the right kendall and the left frontal barton radiata white matter. Of note, he was not a candidate for TPA given that his symptoms had proceeded for 3 days prior to his presentation. Head and neck MRA revealing stenosis to the right vertebral artery and basilar artery. Recommendation for CTA at that time. CTA revealed no flow limiting stenosis of the cervical carotid or vertebral arteries but revealed moderate right and mild left irregularities of the vertebral arteries with unchanged moderate focal stenosis of the basilar artery. Neurology was brought on board who recommended initiation of Plavix and follow up with a neurointerventionalist - Dr Cohen at [facility] for further outpatient followup. Hypercoagulable workup was also initiated and at time of discharge, several blood tests are still pending including anti- thrombin 3, cardiolipin IgG, factor V Leiden, lupus anticoagulant, and protein C - recommend follow-up outpatient for these results. Regarding risk factor modification, we attempted education on better control of his diabetes but the patient was not compliant. We also encouraged him to take check his blood pressure daily and keep a local for his primary care team. He was also started on a baby aspirin. His statin was continued. He was evaluated by OT and PT who recommended outpatient therapy which would need to be set up by his primary care provider. He remained alert and oriented 3 throughout this admission with no deficits to his speech. He did continue to have weakness in his left hand and mild weakness in his left leg upon disposition. He was discharged home in stable condition with close outpatient follow-up recommended. ITS Impressions Head CT 09/06/16 16:42 IMPRESSION: No acute intracranial abnormality. D/ / Ty Santos MD / Ty Santos MD Interpreting Provider: Ty Santos MD Brain MRI 09/07/16 17:53 IMPRESSION: 1. Acute ischemic lacunar infarcts in the right kendall and left frontal barton radiata white matter. 2. No evidence of intracranial hemorrhage or mass. 3. Mild chronic white matter microvascular ischemic changes. 4. Mild irregular stenosis of the intracranial right vertebral artery moderate focal stenosis at the origin of the basilar artery. 5. Normal MRA of the neck. RECOMMENDATIONS: CT angiogram of the head and neck to evaluate vertebrobasilar pathology. D/ / Zane Thornton MD / Zane Thornton MD Interpreting Provider: Zane Thornton MD Head MRA 09/07/16 17:53 IMPRESSION: 1. Acute ischemic lacunar infarcts in the right kendall and left frontal barton radiata white matter. 2. No evidence of intracranial hemorrhage or mass. 3. Mild chronic white matter microvascular ischemic changes. 4. Mild irregular stenosis of the intracranial right vertebral artery moderate focal stenosis at the origin of the basilar artery. 5. Normal MRA of the neck. RECOMMENDATIONS: CT angiogram of the head and neck to evaluate vertebrobasilar pathology. D/ / Zane Thornton MD / Zane Thornton MD Interpreting Provider: Zane Thornton MD Neck MRA 09/07/16 17:53 IMPRESSION: 1. Acute ischemic lacunar infarcts in the right kendall and left frontal barton radiata white matter. 2. No evidence of intracranial hemorrhage or mass. 3. Mild chronic white matter microvascular ischemic changes. 4. Mild irregular stenosis of the intracranial right vertebral artery moderate focal stenosis at the origin of the basilar artery. 5. Normal MRA of the neck. RECOMMENDATIONS: CT angiogram of the head and neck to evaluate vertebrobasilar pathology. D/ / Zane Thornton MD / Zane Thornton MD Interpreting Provider: Zane Thornton MD Head CTA 09/08/16 07:25 IMPRESSION: 1. Hypo density in the right kendall compatible with known infarct. 2. No evidence of hemorrhagic transformation. No mass effect or midline shift. 3. Unchanged moderate focal stenosis at the origin of the basilar artery. 4. Moderate right and mild left irregularities of the V4 segments of the vertebral arteries. D/ / Gregg Meléndez MD / Gregg Meléndez MD Interpreting Provider: Gregg Meléndez MD Neck CTA 09/08/16 07:25 IMPRESSION: No flow-limiting stenosis of the cervical carotid or vertebral arteries. D/ / 09/08/2016 09:20:03 Faith Holland MD / bobbi Interpreting Provider: Faith Holland MD Echocardiogram impressions: LVEF 65%. Normal LV chamber size and function. Mild concentric left jugular hypertrophy. Mild left ventricular diastolic dysfunction. Normal right ventricular structure and function. No significant valve dysfunction. No Evidence of PFO with agitated saline contrast. - Time Spent with Patient Total time spent providing and/or coordinating discharge services: - Constitutional Vitals: Temp Pulse Resp BP Pulse Ox 98.6 F 82 16 132/79 97 09/08/16 11:49 09/08/16 11:49 09/08/16 11:49 09/08/16 11:49 09/08/16 11:49 General appearance: Present: A&O X 3, pleasant, no acute distress, answers questions appropriately - Head Head exam: Present: atraumatic, normocephalic - Eye Eye exam: Present: PERRL, conjuntiva pink, sclera anicteric Pupils: Present: PERRL - Neck Neck exam general surgery: Present: supple, trachea midline. Absent: lymphadenopathy - Respiratory Respiratory exam: Present: CTAB. Absent: accessory muscle use, rales, respiratory distress, rhonchi, wheezes - Cardiovascular Cardiovascular exam: Present: RRR, +S1, +S2. Absent: diastolic murmur, gallop, rubs, systolic murmur - GI/Abdominal GI/Abdominal exam: Present: normal bowel sounds, soft, no peritoneal signs. Absent: distended, tenderness - Extremities Exam Extremities exam: Present: warm, radial pulses palpable and symetrical. Absent : calf tenderness, cyanotic, pedal edema - Neurological Exam Neurological exam: Present: alert, CN II-XII intact, oriented X3, no focal deficits. Absent: strengths equal and symetr throughout, pronater drift, facial droop, speech deficit - Expanded Neurological Exam Neurological exam expanded: Present: protecting the airway Patient oriented to: Present: person, place, time Speech: Present: fluid speech Cranial Nerves: EOM's intact PM: Normal, gag reflex PM: Normal Neuro motor strength exam: LUE: 3, RUE: 5, LLE: 4, RLE: 5 Coma Scale Eye Opening: Spontaneous Coma Scale Motor Response: Obeys Commands Coma Scale Verbal Response: Oriented Coma Scale Total: 15 - Skin Skin exam: Present: dry, intact, normal color, warm - VTE Documentation of Mechanical Device: Graduated compression elastic hosiery
[2016-09-10 11:26] LABS: Protein C, Functional 144 % (83-168)
[2016-09-10 16:40] LABS: APTT (LE Anticoag) 43 sec (32-48); Diluted Russell Viper Venom 33 sec (33-44); PT (LE-Anticoag) 13.1 sec (12.0-15.5)
== END 2016-09-08 15:48 | disposition home or self-care (01) | DRG 65 ==
LOC: 3BNU 15:56 → EMEROO 15:56 → 3BNU 19:02
PROVIDERS: ADMIT Nurse Practitioner Family; ATTEND Nurse Practitioner Family

== ENCOUNTER 2016-12-01 13:44 | Observation (INO) ==
--- NOTE | 2016-12-01 15:04 | Emergency Department Note ---
Disposition Clinical Impression: Chest pain, Diabetes mellitus, Hyperlipemia, HTN (hypertension), Cerebrovascular disease, Family history of coronary artery disease, Obesity, Family history of thoracic aortic aneurysm, Abnormal EKG Disposition: Admitted As Inpatient Referrals: Fam Zafar DO [Primary Care Provider] - Forms: ED Satisfaction Letter General Adult HPI - General Chief complaint: ED Chest Pain Stated complaint: Chest Pain, CARRIE Source: patient Limitations: no limitations - History of Present Illness HPI Narrative: 46-year-old male reports to the emergency department complaining of recurrent shortness of breath and chest pain with exertion over the last several days. He has had left arm and neck pain. The pain has been dull and he notices it when he is walking. Last night he threw up, he had no bloody material in the emesis, there is been no diarrhea or bloody stool. There is no history of abdominal pain or acute back pain. The patient states he recently had a stroke and has been generally weak. There is been no difficulty walking talking hearing seeing or speaking, no slurred speech or confusion or seizure. No weakness on one side of the body, no acute strokelike changes. There is no history of headache neck stiffness rash or fever or cough no history of urinary problems. The patient denies any heart problems but reports he has had a stroke , he has a history of hypertension, hyperlipidemia, family history of coronary disease, and diabetes. He has never had a stress test or a heart catheterization. He has a family history of thoracic aneurysm per his report. Pain Scale: 3 - Related Data Home Medications Medication Instructions Recorded Confirmed Amlodipine Besylate 5 mg PO DAILY 09/07/16 12/01/16 Citalopram Hydrobromide 10 mg PO DAILY 09/07/16 12/01/16 [Citalopram HBr] Losartan/Hydrochlorothiazide 0.5 each PO BID 09/07/16 12/01/16 [Hyzaar 100-25 Tablet] Metformin HCl [Glucophage] 1,000 mg PO BID 09/07/16 12/01/16 Pravastatin Sodium [Pravachol] 40 mg PO DAILY 09/07/16 12/01/16 Glimepiride [Amaryl] 2 mg PO 0800 12/01/16 12/01/16 SitaGLIPtin [Januvia] 100 mg PO DAILY 05/09/17 05/09/17 Previous Rx's Medication Instructions Recorded Aspirin 81 mg PO DAILY #30 tab.chew 09/08/16 Clopidogrel Bisulfate [Plavix] 75 mg PO DAILY #30 tablet 09/08/16 Allergies Allergy/AdvReac Type Severity Reaction Status Date / Time No Known Drug Allergies Allergy See Verified 09/30/16 17:55 Comments All systems ED: reviewed and negative except as stated. Past Medical History - Past Medical History Medical history: Reports: CVA, diabetes, hyperlipidemia, hypertension, myocardial infarction Surgical history: Reports: no surgical history Psychiatric history: Reports: no psych history - Social History Smoking Status: Never smoker Smokeless Tobacco Status: Yes Alcohol use: Reports: none Drug use: Reports: none Physical Exam - General Limitations: no limitations General appearance: alert, in no apparent distress - Head Head exam: atraumatic, normocephalic, normal inspection - Eye Eye exam: Present: normal appearance, PERRL, EOMI - ENT ENT exam: normal exam, normal oropharynx, mucous membranes moist - Neck Neck exam: Present: normal inspection, full ROM, trachea midline. Absent: meningismus - Chest Chest inspection: Present: symmetric chest wall rise. Absent: tenderness - Respiratory Respiratory exam: Present: normal lung sounds bilaterally. Absent: respiratory distress, wheezes, accessory muscle use, prolonged expiratory phase - Cardiovascular Cardiovascular exam: Present: regular rate - Abdominal Exam Abdominal exam: Present: soft, Non-Tender, normal bowel sounds. Absent: tenderness, distention, guarding, rebound, rigidity, pulsatile mass - Extremities Exam Extremities exam: Present: normal inspection, full ROM, normal capillary refill. Absent: tenderness, pedal edema, joint swelling, calf tenderness - Expanded Lower Extremity Exam Neurovascular/Tendon exam: Present: normal capillary refill. Absent: pulse deficit, motor deficit, sensory deficit, tendon deficit, extremity cold to touch , pallor - Back Exam Back exam: Present: normal inspection, full ROM. Absent: tenderness, CVA tenderness (R), CVA tenderness (L), vertebral tenderness - Neurological Exam Neurological exam: Present: alert, oriented X3, CN II-XII intact. Absent: motor sensory deficit - Psychiatric Psychiatric exam: Present: normal affect, normal mood - Skin Skin exam: Present: warm, dry, intact, normal color. Absent: rash, cyanosis, diaphoresis, erythema, mottled Course Vital Signs Temperature 98.6 F 12/01/16 14:28 Pulse Rate 104 05/09/17 14:28 Respiratory Rate 20 12/01/16 14:28 Blood Pressure 152/85 12/01/16 14:28 O2 Sat by Pulse Oximetry 97 12/01/16 14:28 Temperature 98.6 F 12/01/16 14:28 Pulse Rate 97 12/01/16 16:34 Respiratory Rate 18 12/01/16 16:34 Blood Pressure 134/90 12/01/16 16:34 O2 Sat by Pulse Oximetry 96 12/01/16 16:34 Oxygen Delivery Oxygen Delivery Room Air Medical Decision Making - [facility] Narrative Medical decision making narrative: The patient has a history of cerebrovascular disease, diabetes, hypertension, hyperlipidemia, he is obese, and has a family history of coronary artery disease and reportedly thoracic aneurysm, the patient is describing chest pain which is new for him, he has had left arm pain and left jaw pain and shortness of breath with exertion and did throw up once. The patient was given aspirin the ED. He remained comfortable while here. Based on his multiple cardiac risk factors, abnormal EKG, no history of previous or recent heart catheter or stress test to define cardiovascular anatomy, and acute chest pain, I do not be appropriate to admit the patient to the hospital. Aspirin was ordered. IV fluid given. I discussed the case with the hospitalist on-call. Chest x-ray shows no acute disease. CT chest abdomen and pelvis has been ordered to assess for vascular disease. - Lab Data Lab results reviewed: Yes I reviewed the patient's lab results. Result diagrams: 12/01/16 15:43 12/01/16 15:43 Lab Results 12/01/16 12/01/16 12/01/16 Range/Units 15:43 15:43 15:43 WBC (4.3-11.1) K/mcL RBC (4.19-5.50) M/mcL Hgb (12.9-16.9) g/dL Hct (37.5-50.1) % MCV (83.0-100.0) fL MCH (28.0-33.3) pg MCHC (31.6-35.5) g/dL RDW (11.5-14.5) % Plt Count (140-400) K/mcL MPV (9.4-12.4) fL Immature Gran % (0-4) % Seg Neutrophils % % Lymphocytes % % Monocytes % % Eosinophils % % Basophils % % Neutrophils # (1.6-8.9) K/mcL Lymphocytes # (0.6-4.6) K/mcL Monocytes # (0.0-1.3) K/mcL Eosinophils # (0.0-0.6) K/mcL Basophils # (0.0-0.2) K/mcL PT 13.0 H (9.4-12.1) Seconds INR 1.2 APTT 33.5 (26.0-36.0) Seconds Sodium (136-145) mEq/L Potassium (3.5-4.5) mEq/L Chloride (98-109) mEq/L Carbon Dioxide (19-29) mEq/L BUN (8-26) mg/dL Creatinine (0.72-1.25) mg/dL Est GFR ( Amer) (> 60) Est GFR (Non-Af Amer) (> 60) BUN/Creatinine Ratio (6-26) Glucose (70-99) mg/dL Calculated Osmolality (280-300) Lactic Acid 2.0 (0.5-2.2) mmol/L Calcium (8.6-10.8) mg/dL Total Bilirubin 0.6 (0.2-1.2) mg/dL Direct Bilirubin 0.2 (0.0-0.5) mg/dL Indirect Bilirubin 0.4 (0.0-1.2) mg/dL AST 13 (5-34) Units/L ALT 16 (0-55) Units/L Alkaline Phosphatase 55 (38-126) Units/L Troponin I (0-0.03) ng/mL C-Reactive Protein 7 H (Less than 5) mg/L B-Natriuretic Peptide (0-100) pg/mL Serum Total Protein 8.0 (6.0-8.3) g/dL Albumin 3.9 (3.5-5.0) g/dL Globulin 4.1 H (2.4-3.5) g/dL Albumin/Globulin Ratio 1.0 L (1.1-2.2) Lipase 72 (8-78) Units/L 12/01/16 12/01/16 12/01/16 Range/Units 15:43 15:43 15:43 WBC 8.5 (4.3-11.1) K/mcL RBC 5.03 (4.19-5.50) M/mcL Hgb 14.4 (12.9-16.9) g/dL Hct 41.1 (37.5-50.1) % MCV 81.7 L (83.0-100.0) fL MCH 28.6 (28.0-33.3) pg MCHC 35.0 (31.6-35.5) g/dL RDW 13.2 (11.5-14.5) % Plt Count 215 (140-400) K/mcL MPV 9.6 (9.4-12.4) fL Immature Gran % 0.5 (0-4) % Seg Neutrophils % 55.5 % Lymphocytes % 32.0 % Monocytes % 9.5 % Eosinophils % 2.1 % Basophils % 0.4 % Neutrophils # 4.7 (1.6-8.9) K/mcL Lymphocytes # 2.7 (0.6-4.6) K/mcL Monocytes # 0.8 (0.0-1.3) K/mcL Eosinophils # 0.2 (0.0-0.6) K/mcL Basophils # 0.0 (0.0-0.2) K/mcL PT (9.4-12.1) Seconds INR APTT (26.0-36.0) Seconds Sodium 140 (136-145) mEq/L Potassium 3.5 (3.5-4.5) mEq/L Chloride 100 (98-109) mEq/L Carbon Dioxide 31 H (19-29) mEq/L BUN 16 (8-26) mg/dL Creatinine 0.92 (0.72-1.25) mg/dL Est GFR ( Amer) > 60 (> 60) Est GFR (Non-Af Amer) > 60 (> 60) BUN/Creatinine Ratio 17 (6-26) Glucose 107 H (70-99) mg/dL Calculated Osmolality 292 (280-300) Lactic Acid (0.5-2.2) mmol/L Calcium 9.8 (8.6-10.8) mg/dL Total Bilirubin (0.2-1.2) mg/dL Direct Bilirubin (0.0-0.5) mg/dL Indirect Bilirubin (0.0-1.2) mg/dL AST (5-34) Units/L ALT (0-55) Units/L Alkaline Phosphatase (38-126) Units/L Troponin I (0-0.03) ng/mL C-Reactive Protein (Less than 5) mg/L B-Natriuretic Peptide < 10 (0-100) pg/mL Serum Total Protein (6.0-8.3) g/dL Albumin (3.5-5.0) g/dL Globulin (2.4-3.5) g/dL Albumin/Globulin Ratio (1.1-2.2) Lipase (8-78) Units/L 12/01/16 Range/Units 15:43 WBC (4.3-11.1) K/mcL RBC (4.19-5.50) M/mcL Hgb (12.9-16.9) g/dL Hct (37.5-50.1) % MCV (83.0-100.0) fL MCH (28.0-33.3) pg MCHC (31.6-35.5) g/dL RDW (11.5-14.5) % Plt Count (140-400) K/mcL MPV (9.4-12.4) fL Immature Gran % (0-4) % Seg Neutrophils % % Lymphocytes % % Monocytes % % Eosinophils % % Basophils % % Neutrophils # (1.6-8.9) K/mcL Lymphocytes # (0.6-4.6) K/mcL Monocytes # (0.0-1.3) K/mcL Eosinophils # (0.0-0.6) K/mcL Basophils # (0.0-0.2) K/mcL PT (9.4-12.1) Seconds INR APTT (26.0-36.0) Seconds Sodium (136-145) mEq/L Potassium (3.5-4.5) mEq/L Chloride (98-109) mEq/L Carbon Dioxide (19-29) mEq/L BUN (8-26) mg/dL Creatinine (0.72-1.25) mg/dL Est GFR ( Amer) (> 60) Est GFR (Non-Af Amer) (> 60) BUN/Creatinine Ratio (6-26) Glucose (70-99) mg/dL Calculated Osmolality (280-300) Lactic Acid (0.5-2.2) mmol/L Calcium (8.6-10.8) mg/dL Total Bilirubin (0.2-1.2) mg/dL Direct Bilirubin (0.0-0.5) mg/dL Indirect Bilirubin (0.0-1.2) mg/dL AST (5-34) Units/L ALT (0-55) Units/L Alkaline Phosphatase (38-126) Units/L Troponin I 0.00 (0-0.03) ng/mL C-Reactive Protein (Less than 5) mg/L B-Natriuretic Peptide (0-100) pg/mL Serum Total Protein (6.0-8.3) g/dL Albumin (3.5-5.0) g/dL Globulin (2.4-3.5) g/dL Albumin/Globulin Ratio (1.1-2.2) Lipase (8-78) Units/L - Radiology Data Radiology results reviewed: Yes I reviewed the patient's radiology results. - EKG Data EKG #1 EKG shows normal: sinus rhythm Rate: tachycardia Interpretation: no acute changes
[2016-12-01] MEDS ORDERED: Aspirin 325 MG TABLET PO ONE (15:10)
[2016-12-01 15:52] LABS: Basophils % 0.4 %; Eosinophils % 2.1 %; Hematocrit 41.1 % (37.5-50.1); Hemoglobin 14.4 g/dL (12.9-16.9); Immature Granulocytes % 0.5 % (0-4); Mean Corpuscular Hemoglobin 28.6 pg (28.0-33.3); Mean Corpuscular Volume 81.7 fL (83.0-100.0); Mean Platelet Volume 9.6 fL (9.4-12.4); Monocytes % 9.5 %; Platelet Count 215 K/mcL (140-400); Red Blood Count 5.03 M/mcL (4.19-5.50); Red Cell Distribution Width 13.2 % (11.5-14.5); Segmented Neutrophils % 55.5 %
[2016-12-01 15:53] LABS: Eosinophils # 0.2 K/mcL (0.0-0.6); Lymphocytes # 2.7 K/mcL (0.6-4.6); Monocytes # 0.8 K/mcL (0.0-1.3); Neutrophils # 4.7 K/mcL (1.6-8.9)
[2016-12-01 15:58] LABS: INR 1.2
[2016-12-01 16:01] LABS: Activated Partial Thrombo Time 33.5 Seconds (26.0-36.0)
[2016-12-01 16:14] LABS: BUN/Creatinine Ratio 17 (6-26); Blood Urea Nitrogen 16 mg/dL (8-26); Calcium 9.8 mg/dL (8.6-10.8); Carbon Dioxide 31 mEq/L (19-29); Chloride 100 mEq/L (98-109); Glucose 107 mg/dL (70-99); Osmolality,Calculated 292 (280-300); Potassium 3.5 mEq/L (3.5-4.5); Sodium 140 mEq/L (136-145); eGFR For African Americans > 60 (> 60); eGFR For Non-African Americans > 60 (> 60)
[2016-12-01 16:15] LABS: Albumin 3.9 g/dL (3.5-5.0); Bilirubin,Direct 0.2 mg/dL (0.0-0.5); Bilirubin,Indirect 0.4 mg/dL (0.0-1.2); Bilirubin,Total 0.6 mg/dL (0.2-1.2); Globulin 4.1 g/dL (2.4-3.5)
[2016-12-01] MEDS ORDERED: 0.9 % Sodium Chloride 1,000 ML IVC ONE (16:49)
[2016-12-01] MEDS ORDERED: Naloxone 0.4 MG/ML INJ IVP PRN (19:53)
[2016-12-01] MEDS ORDERED: *HR* Morphine 2 MG/ML SYRINGE IVP PRN (19:53)
[2016-12-01] MEDS ORDERED: Dextrose Gel 15 GM PO PRN ×2 (19:59)
[2016-12-01] MEDS ORDERED: D5% in Water 1,000 ML IVC PRN (19:59)
[2016-12-01] MEDS ORDERED: *HR* Dextrose 50 % in Water (Syg) 50 ML SYRINGE IVP PRN (19:59)
[2016-12-01] MEDS: Losartan/HCTZ 50-12.5 TABLET PO SCH (20:52)
[2016-12-01] MEDS ORDERED: Insulin LISPRO 300 UNITS/3 ML VIAL SQ SCH (21:00)
--- NOTE | 2016-12-01 21:08 | Internal Med History&Physical ---
<Milka Ordonez - Last Filed: 12/01/16 21:26> Date of Encounter: 12/01/16 Time of Encounter: 21:02 Assessment and Plan (1) Chest pain Current visit: Yes Status: Acute that started day of admission. Has not had ischemic valuation in the past. Cardiac risk factors include HTN, DM and CVA. Initial troponin negative, EKG without acute ST changes. Chest CTA negative for pulmonary embolism. Cycle troponin, echo, nuc med stress test. Consult Cardiology if needed. Cont home ASA , statin Qualifiers: Chest pain type: other chest pain Qualified Code(s): R07.89 - Other chest pain; R07.8 - Other chest pain (2) Left kidney mass Current visit: Yes Status: Acute incidentally found. ABD CTA with left upper renal pole mass. Renal US ending (3) Pancreatic abnormality Current visit: Yes Status: Acute incidentally found. ABD CTA with mildly enlarged peripancreatic lymph node. Will need repeat CT in 6 months (4) CVA (cerebral vascular accident) Current visit: No Status: Acute per hx 08/2016. No residual effects, Cont home ASA, plavix, statin Qualifiers: CVA mechanism: unspecified Qualified Code(s): I63.9 - Cerebral infarction, unspecified (5) Diabetes mellitus Current visit: Yes Status: Chronic per hx. Hold home oral hypoglycemics. SSI while inpatient. Monitor blood sugar and titrate PRN Qualifiers: Diabetes mellitus type: type 2 Diabetes mellitus complication status: without complication Diabetes mellitus termite exterminator helper insulin use: without fdc use Qualified Code(s): E11.9 - Type 2 diabetes mellitus without complications (6) HTN (hypertension) Current visit: Yes Status: Chronic per hx. BP controlled. Cont home BP medications. Monitor BP and titrate PRN. Qualifiers: Hypertension type: essential hypertension Qualified Code(s): I10 - Essential (primary) hypertension (7) DVT prophylaxis Current visit: Yes Status: Acute [facility] Internal Medicine - H&P: HPI Chief complaint: chest pain and SOB Admitted From: Home Plans for Post Hospital Care: Home History of present illness: Mr. Moore is a 46 year old male with PMH DM, HTN and recent CVA who presented to [facility] on 12/01/2016 with complaints of chest pain and SOB. He was plaved in observation status for ACS rule ot. Information obtained form chart review an patient report. Patient reports acute onset CP today, described as dull pain, mid-sternal and radiated to left jaw/neck. Nothing makes better or worse. Says it comes and goes. Also reports SOB for the last 4 days. Says he has to stop and catch breath when going across room at home which is new. He did have one episode of emesis last night Past Med Surg Social Fam HX - Past Medical History Medical history: CVA, diabetes, hyperlipidemia, hypertension, myocardial infarction Psychiatric history: anxiety - Past Surgical History Surgical History: no surgical history - Social History Smoking Status: Never smoker Smokeless Tobacco Status: Yes Alcohol use: heavy, recent Drug use: none - Family History Father Living Status: Still Living Hx Family Neurologic Disorders: Yes (mini-stroke) Sister Living Status: Internal Medicine - H&P: Meds Amlodipine Besylate 5 mg PO DAILY 09/07/16 [History] Citalopram Hydrobromide [Citalopram HBr] 10 mg PO DAILY 09/07/16 [History] Losartan/Hydrochlorothiazide [Hyzaar 100-25 Tablet] 0.5 each PO BID 09/07/16 [ History] Metformin HCl [Glucophage] 1,000 mg PO BID 09/07/16 [History] Pravastatin Sodium [Pravachol] 40 mg PO HS 09/07/16 [History] Aspirin 81 mg PO DAILY #30 tab.chew 09/08/16 [Rx] Clopidogrel Bisulfate [Plavix] 75 mg PO DAILY #30 tablet 09/08/16 [Rx] Glimepiride [Amaryl] 2 mg PO 0800 12/01/16 [History] SitaGLIPtin [Januvia] 100 mg PO DAILY 12/01/16 [History] Allergies No Known Drug Allergies Allergy (Verified 09/30/16 17:55) See Comments All Systems PM: A 10-system review of systems was performed and is negative for pertinent findings except as documented above in the HPI. - Constitutional Constitutional: no chills, no fever(s), no night sweats - EENT Eyes: no change in vision, no discharge, no pain, no photophobia Ears: no ear discharge, no ear pain, no tinnitus Nose, mouth and throat: no dysphagia, no nasal discharge, no neck pain, no sore throat - Cardiovascular Cardiovascular ROS IM: chest pain, dyspnea on exertion, no diaphoresis, no dyspnea, no lightheadedness, no palpitations, no syncope - Respiratory Respiratory: no cough, no dyspnea, no wheezing, no excessive phlegm production - Gastrointestinal Gastrointestinal: no abdominal pain, no diarrhea, no hematemesis, no hematochezia, no melena, no nausea, no vomiting - Musculoskeletal Musculoskeletal ROS IM: no numbness, no tingling - Integumentary Integumentary IM: no rash, no unusual bruising - Neurological Neurological ROS: no confusion, no convulsions, no focal weakness, no numbness, no tingling, no tremor(s) - Hematologic/Lymphatic Hematologic/Lymphatic: no easy bruising - Constitutional Vitals: Temp Pulse Resp BP Pulse Ox 97.6 F 89 16 161/81 97 12/01/16 19:27 12/01/16 19:27 12/01/16 19:27 12/01/16 19:27 12/01/16 19:27 - Head Head exam: Present: atraumatic, normocephalic - Eye Eye exam: Present: PERRL, conjuntiva pink, sclera anicteric Pupils: Present: PERRL - Neck Neck exam general surgery: Present: supple, trachea midline. Absent: lymphadenopathy - Respiratory Respiratory exam: Present: CTAB. Absent: accessory muscle use, rales, rhonchi, wheezes - Cardiovascular Cardiovascular exam: Present: RRR, +S1, +S2. Absent: diastolic murmur, gallop, rubs, systolic murmur - GI/Abdominal GI/Abdominal exam: Present: normal bowel sounds, soft, no peritoneal signs. Absent: distended, tenderness - Extremities Exam Extremities exam: Present: warm, radial pulses palpable and symetrical. Absent : calf tenderness, cyanotic, pedal edema - Neurological Exam Neurological exam: Present: CN II-XII intact, oriented X3, no focal deficits. Absent: pronater drift, facial droop, speech deficit - Skin Skin exam: Present: dry, intact Internal Med - H&P Results - Labs CBC & Chem 7: 12/01/16 15:43 12/01/16 15:43 <Victor M De Paz - Last Filed: 12/01/16 23:56> Date of Encounter: 12/01/16 Internal Medicine - H&P: HPI History of present illness: Mr. Moore is a 46 year old male All Systems PM: A 10-system review of systems was performed and is negative for pertinent findings except as documented above in the HPI. - Constitutional Vitals: Temp Pulse Resp BP Pulse Ox 98.3 F 99 16 139/87 95 12/01/16 23:12 12/01/16 23:12 12/01/16 23:12 12/01/16 23:12 12/01/16 23:12 Internal Med - H&P Results - Labs CBC & Chem 7: 12/01/16 15:43 12/01/16 15:43 Labs: Cardiac Enzymes 12/01/16 Range/Units 22:56 Troponin I 0.00 (0-0.03) ng/mL - Impressions ITS Impressions Retroperitoneum Ultrasound 12/01/16 21:01 IMPRESSION: Indeterminate hypoechoic slightly lobulated lesion of the left kidney. A dedicated renal protocol CT or MRI is recommended to further evaluate. D/ / Keyla Rush Cha, MD / Keyla Rush Cha, MD Interpreting Provider: Keyla Rush Cha, MD - Attending Attestation I examined this patient and my medical decision-making was reviewed with the Advanced Practice Nurse. I agree with the documented findings, disposition and treatment plan as described.
[2016-12-02 04:48] LABS: Basophils % 0.4 %; Eosinophils # 0.2 K/mcL (0.0-0.6); Eosinophils % 2.7 %; Hematocrit 37.2 % (37.5-50.1); Hemoglobin 13.3 g/dL (12.9-16.9); Immature Granulocytes % 0.4 % (0-4); Lymphocytes # 2.7 K/mcL (0.6-4.6); Lymphocytes % 35.6 %; Mean Corpuscular HGB Conc 35.8 g/dL (31.6-35.5); Mean Corpuscular Hemoglobin 29.4 pg (28.0-33.3); Mean Corpuscular Volume 82.1 fL (83.0-100.0); Mean Platelet Volume 10.5 fL (9.4-12.4); Monocytes # 0.8 K/mcL (0.0-1.3); Monocytes % 10.2 %; Neutrophils # 3.8 K/mcL (1.6-8.9); Platelet Count 194 K/mcL (140-400); Red Blood Count 4.53 M/mcL (4.19-5.50); Red Cell Distribution Width 13.1 % (11.5-14.5); Segmented Neutrophils % 50.7 %
[2016-12-02] MEDS ORDERED: *HR* Enoxaparin 30 MG/0.3 ML SYRINGE SQ SCH (06:00)
[2016-12-02] MEDS ORDERED: Regadenoson 0.4 MG/5 ML SYRINGE IVP ONE (07:20)
[2016-12-02] MEDS: Insulin LISPRO 300 UNITS/3 ML VIAL SQ SCH ×2 (07:49→12:34)
[2016-12-02] MEDS ORDERED: Aspirin 81 MG TAB.CHEW PO SCH (09:00)
[2016-12-02] MEDS ORDERED: amLODIPine 5 MG TABLET PO SCH (09:00)
[2016-12-02] MEDS: Losartan/HCTZ 50-12.5 TABLET PO SCH (10:17)
--- NOTE | 2016-12-02 11:20 | Nuclear Medicine Stress Report ---
Regadenoson Nuclear Stress Name: Scooter Moore Date of Study: 12/02/2016 Date: 1970 Ht: 70.0 in Medical Record#: [id number] Age: 46 Wt: 225.0 lb Gender: Male Order #: [id number] Location: [facility] Room: [facility] Supervising Provider: Demetria Baires CNP Reading Physician: Ty Mcdonald DO, [facility] Ordering Physician: Desiree Joy CNP Primary Care Physician: Fam Zafar DO Stress Technologist: Jc Thomason, WAFER FAB TECHNICIAN, CP Field Services Director: Moses Phillip Impression: Pharmacologic stress ECG is negative for ischemia at level of heart rate achieved. Gated EF = 53%. Perfusion imaging was negative for ischemia or infarct. History: Hypertension Diabetes Hypercholesteremia Stress Test Summary: Stress Test Type: Pharmacologic Regadenoson 0.4mg/5ml given IV Baseline Information: Initial Heart Rate: 84 Blood Pressure: 122/72 Stress Information: Stress Time: 4 min 00 sec Test Terminated Due to (primary): Dyspnea Maximum Blood Pressure: 116/76 Maximum Heart Rate: 103 Percent Maximum Heart Rate Achieved: 60 Double Product: 00337 METS Reached: 1 Symptoms: Shortness of breath Nuclear Summary: SPECT myocardial perfusion imaging using Tc99m Sestamibi given intravenously was performed at rest and following cardiac stress testing. The resting images were obtained following initial dose of 11.7 mCi. Following stress an additional dose of 30.6 mCi was given at peak exercise or 30 seconds post regadenoson infusion. Medication Given: Time Medication Dose Units Route Findings: Stress Note * Resting ECG demonstrated normal sinus rhythm. * No baseline arrhythmias were noted. * Pharmacologic stress ECG is negative for ischemia at level of heart rate achieved. * No arrhythmias were noted during stress. * Patient had no chest pain during stress. * Normal hemodynamic responses to pharmacologic stress. Study Quality * Study quality is good. Gated EF % * Gated EF = 53%. Left Ventricle * The left ventricle is not dilated. * LVEDV = 111 mL. NORMALS * Normal wall motion. * Normal Segmental Perfusion in rest. * Normal segmental perfusion in stress. TID * No evidence of transient ischemic dilatation. TID ratio * TID ratio = 1.00. Lung Uptake * There is no evidence of increase lung uptake. Updated by Ty Mcdonald DO, AWAIS, CASEY, MARY on 12/02/2016 11:14:45 AM electronically signed on 12/02/2016 11:15:40 AM with status of Final
--- NOTE | 2016-12-02 11:35 | ECHO - Doppler Report ---
Limited Echocardiogram Name: Scooter Moore Date of Study: 12/02/2016 Date: 1970 Ht: 70.0 in Medical Record#: [id number] Age: 46 Wt: 225.0 lb Gender: Male BSA: 2.19 Order #: [id number] Location: [facility] Room #: 3B36 Reading Physician: Ty Mcdonald DO, FACC, FASE Tradeshow Worker: Ryne Marroquin RDCS Ordering Physician: Milka Ordonez CNP Primary Physician: Fam Zafar DO Indications: Acute coronary syndrome Impressions: LVEF 60%. Mild concentric left ventricular hypertrophy. Normal LV chamber size and function. Left Ventricular Wall Motion: Rest Echo Findings All wall segments showed normal motion. Findings: Study Quality * Technically adequate exam. ECG Findings * Normal sinus rhythm. Left Ventricle * LVEF 60%. * Normal LV chamber size and function. * Mild concentric left ventricular hypertrophy. Right Ventricle * Normal right ventricular structure and function. Left Atrium * Mildly dilated left atrium. Right Atrium * Normal right atrial size. Aorta * Normally sized aortic root. Pericardium * The pericardium appears normal. IVC * The IVC is not dilated. History Hypertension Diabetes Hypercholesteremia Family History of CAD 09/07/16 a Previous Echo was performed. Measurements: BP: 144/ 85 2D Normal Values RVIDd: 3.20 cm <2.7 cm IVSd: 1.20 cm 0.6 - 1.0 cm LVIDd: 4.80 cm 3.7 - 5.6 cm LVPWd: 1.20 cm 0.6 - 1.1 cm LVIDs: 3.70 cm 1.5 - 3.6 cm AO: 2.90 cm < 4.0 cm LA: 4.00 cm 2.0 - 4.0cm %FS: 22.90 cm >25 % LA volume: 41 Updated by Ty Mcdonald DO, FACC, FASE, FASNC on 12/02/2016 11:29:03 AM electronically signed on 12/02/2016 11:29:30 AM with status of Final Wall Motion Hernandez: 1=Normal, 2=Hypokinesis, 3=Akinesis, 4=Dyskinesis, 5=Aneurysmal, 6=Hyperkinetic, X=Not Visualized (Blank)=Missing
--- NOTE | 2016-12-02 12:37 | Discharge Summary ---
Date of Encounter: 12/02/16 Time of Encounter: 12:00 - Discharge Diagnosis (1) Chest pain Priority: Primary Status: Acute Comments: Patient was admitted for chest pain that began yesterday. Patient has multiple risk factors including prior CVA, diabetes, hypertension, obesity. Troponins were negative, EKG without acute ST changes. Chest CTA was negative for pulmonary embolism, chest x-ray was negative for any acute cardiopulmonary processes. Patient stress test today was negative for ischemia at level of heart rate achieved, gated EF 53%. Perfusion imaging was negative for ischemia or infarct. Patient also had echocardiogram done today. LVEF 60%, mild concentric left ventricular hypertrophy, and normal LV chamber size and function. Patient will continue his aspirin and statin at home. He is pain-free, lungs are clear anteriorly and posteriorly, he is not short of breath, no nausea, vomiting, diaphoresis. He has no peripheral edema or cough. His vital signs are stable. Qualifiers: Chest pain type: other chest pain Qualified Code(s): R07.89 - Other chest pain; R07.8 - Other chest pain (2) Diabetes mellitus Priority: Secondary Status: Chronic Comments: Chronic. Continue home medications. A1c was 8.7 in August. Qualifiers: Diabetes mellitus type: type 2 Diabetes mellitus complication status: without complication Diabetes mellitus extermination supervisor insulin use: without extermination supervisor use Qualified Code(s): E11.9 - Type 2 diabetes mellitus without complications (3) HTN (hypertension) Priority: Secondary Status: Chronic Comments: Chronic. Continue home medications. Qualifiers: Hypertension type: essential hypertension Qualified Code(s): I10 - Essential (primary) hypertension (4) Hyperlipemia Priority: Secondary Status: Chronic Comments: Chronic. Continue medications. Qualifiers: Hyperlipidemia type: unspecified Qualified Code(s): E78.5 - Hyperlipidemia , unspecified (5) Obesity Priority: Secondary Status: Chronic Comments: Chronic. Lifestyle changes. Qualifiers: Obesity type: due to excess calories Obesity severity: non-morbid Qualified Code(s): E66.09 - Other obesity due to excess calories (6) Left kidney mass Priority: Secondary Status: Acute Comments: This is an incidental finding by CAT scan. Patient denies any history of renal disease or problems in the past. He denies having any symptoms or pain. No changes in urinary frequency urgency, etc. CT showed a hypodensity in the left upper renal pole, averages 35 Hounsfield units. It measures approximately 2.3 X3.2 centimeters. Recommended renal ultrasound. Retroperitoneal ultrasound showed an indeterminate hypoechoic slightly lobulated lesion of left kidney. Recommended a dedicated renal protocol CT which has been ordered. Repeat CT abdomen with and without IV contrast shows lobulated left renal cyst without enhancement. There is no follow-up necessary. (7) DVT prophylaxis Priority: Secondary Status: Acute Comments: Patient is up ad uzma. and observation status. - Discharge Medications Home Medications: Amlodipine Besylate 5 mg PO DAILY 09/07/16 [History] Citalopram Hydrobromide [Citalopram HBr] 10 mg PO DAILY 09/07/16 [History] Losartan/Hydrochlorothiazide [Hyzaar 100-25 Tablet] 0.5 each PO BID 09/07/16 [ History] Metformin HCl [Glucophage] 1,000 mg PO BID 09/07/16 [History] Pravastatin Sodium [Pravachol] 40 mg PO HS 09/07/16 [History] Aspirin 81 mg PO DAILY #30 tab.chew 09/08/16 [Rx] Clopidogrel Bisulfate [Plavix] 75 mg PO DAILY #30 tablet 09/08/16 [Rx] Glimepiride [Amaryl] 2 mg PO 0800 12/01/16 [History] SitaGLIPtin [Januvia] 100 mg PO DAILY 12/01/16 [History] Allergies/Adverse Reactions: Allergies No Known Drug Allergies Allergy (Verified 09/30/16 17:55) See Comments Procedures/tests Complete & Pending: Procedures Performed prior 72 hours Category Date Time Status CT abdomen wo/w con [CT] Routine Cat Scan 12/02/16 12:33 Ordered NM ry perf SPECT multi [NM] Routine Exams 12/01/16 21:28 Taken US retroperitoneal limited [US] Routine Exams 12/01/16 21:01 Completed ECG 12 lead ECG [ECG] Routine Y 12/01/16 19:54 Ordered EV limited echocardiogram Routine Y 12/02/16 19:54 Completed SP pharm nuclear stress Routine Y 12/02/16 08:30 Completed Date of admission: 12/01/16 17:07 Primary care physician: Fam Zafar Discharging clinician: Desiree oJy Anticipated date of discharge: 12/02/16 - Patient Status Disposition: Home, Self-Care Condition: Good Functional capacity at discharge: independent ambulation Overall status at discharge: patient is back to baseline - Discharge Instructions Follow Up With: Fam Zafar DO [Primary Care Provider] - Additional Instructions: Please follow up with your family doctor in the next week to 10 days for a follow up visit. REturn to the ED if you have any other problems or concerns or if your condition changes or symptoms worsen. Resume your normal home medications - Diet and Activity Activity: increase activity as tolerated Diet: advance to your usual diet Hospital course: Mr. Moore is a 46 year old male with a history of recent CVA, hypertension, hyperlipidemia, and diabetes. Patient reports the emergency department yesterday with complaint of recurrent shortness of breath and chest pain with exertion over the last several days. He reported left arm and left posterior neck pain. He described it as dull and he notices it when he is up walking around. Patient had positive emesis last night, he denies vomiting blood or any blood in his stool. He denies any prior heart problems and has never had a cardiac workup in the past. Due to his family history of aortic aneurysms. He did have a CT of abdomen and pelvis. There is no evidence of thoracic aneurysm, no PE, mild hepatic steatosis, and he does have a mildly enlarged perihepatic lymph node. Consider follow-up in 6 months. He also had a hypodensity in the left upper renal pole that average 35 Hounsfield units. It is recommended that he have an ultrasound to determine if is a cyst or mass. The retroperitoneal showed an indeterminate hypoechoic slightly lobulated lesion on the left kidney. A CT renal protocol has been ordered. .... CT abdomen with and without IV contrast shows a lobulated left renal cyst without enhancement. There is no follow-up necessary. History chest test and echo were both unremarkable with EF around 65% and no systolic or diastolic dysfunction, and no valvular dysfunction. Stress test was negative for ischemia or infarct. Patient's vital signs have been within normal limits, his labs have been negative, troponins have been negative, EKG negative for any ischemic changes. Chest x-ray was negative as well. Patient is stable and appropriate for discharge. - Time Spent with Patient Total time spent providing and/or coordinating discharge services: Less than 30 minutes - Constitutional Vitals: Temp Pulse Resp BP Pulse Ox 98.1 F 81 16 130/82 96 12/02/16 11:10 12/02/16 11:10 12/02/16 11:10 12/02/16 11:10 12/02/16 11:10 General appearance: Present: A&O X 3, pleasant, no acute distress, answers questions appropriately - Head Head exam: Present: normal inspection - Eye Eye exam: Present: normal appearance, conjuntiva pink - ENT ENT exam: Present: mucous membranes moist, normal exam, normal oropharynx - Neck Neck exam general surgery: Present: normal inspection. Absent: lymphadenopathy , tenderness - Respiratory Respiratory exam: Present: CTAB. Absent: rales, respiratory distress, rhonchi, wheezes - Cardiovascular Cardiovascular exam: Present: RRR, +S1, +S2. Absent: diastolic murmur, systolic murmur - GI/Abdominal GI/Abdominal exam: Present: soft. Absent: distended, firm, hepatomegaly, tenderness - Extremities Exam Extremities exam: Present: normal inspection, warm, radial pulses palpable and symetrical. Absent: pedal edema, tenderness - Neurological Exam Neurological exam: Present: alert, oriented X3, no focal deficits, strengths equal and symetr throughout. Absent: facial droop, speech deficit
[2016-12-02 15:15] VITALS: BP 157/98
--- NOTE | 2016-12-07 16:57 | Electrocardiograph Report ---
[facility] Test Date: 2016-12-01 Pat Name: Scooter Moore Department: 103 Room: 3B36 Gender: M Transmissions Systems Operator: REBECCA : 1970 Requested By: John Prieto Order Number: [id number] Reading MD: Aiden Fermin MD Measurements Intervals [place] Rate: 103 P: 30 TX: 136 QRS: -20 QRSD: 100 T: 44 QT: 345 QTc: 405 Interpretive Statements SINUS TACHYCARDIA PROBABLE INFERIOR MYOCARDIAL INFARCTION, PROBABLY OLD WITH POSTERIOR EXTENSION Electronically Signed On 12-07-2016 16:55:56 EDT by Aiden Fermin MD
== END 2016-12-02 16:33 | disposition home or self-care (01) ==
LOC: 3BNU 13:44 → EMEROO 13:44 → 3BNU 17:38
PROVIDERS: ADMIT Internal Medicine; ATTEND Registered Nurse

== ENCOUNTER 2021-02-27 15:57 | Observation (INO) ==
[2021-02-27] MEDS ORDERED: 0.9 % Sodium Chloride 1,000 ML IVC ONE (16:27)
[2021-02-27 17:26] LABS: Basophils % 0.3 %; Eosinophils # 0.2 K/mcL (0.0-0.6); Eosinophils % 1.6 %; Hematocrit 45.7 % (37.5-50.1); Hemoglobin 15.9 g/dL (12.9-16.9); Immature Granulocytes % 0.5 % (0-4); Lymphocytes # 3.7 K/mcL (0.6-4.6); Lymphocytes % 33.5 %; Mean Corpuscular HGB Conc 34.8 g/dL (31.6-35.5); Mean Corpuscular Hemoglobin 28.9 pg (28.0-33.3); Mean Corpuscular Volume 83.1 fL (83.0-100.0); Mean Platelet Volume 10.4 fL (9.4-12.4); Monocytes % 8.9 %; Neutrophils # 6.1 K/mcL (1.6-8.9); Platelet Count 259 K/mcL (140-400); Red Cell Distribution Width 13.1 % (11.5-14.5); Segmented Neutrophils % 55.2 %; White Blood Count 11.1 K/mcL (4.3-11.1)
[2021-02-27 17:39] LABS: BUN/Creatinine Ratio 17 (6-26); Blood Urea Nitrogen 23 mg/dL (6-20); Calcium 10.2 mg/dL (8.6-10.3); Carbon Dioxide 28 mEq/L (23-29); Chloride 97 mEq/L (98-107); Glucose 223 mg/dL (70-105); Osmolality,Calculated 297 (280-300); Potassium 3.4 mEq/L (3.5-5.1); Sodium 138 mEq/L (136-145); Troponin I < 0.03 ng/mL (< 0.04); eGFR For African Americans > 60 (> 60); eGFR For Non-African Americans 54 (> 60)
[2021-02-27] MEDS: DilTIAZem 50 MG/50 ML IV.SOLN IVC SCH (17:57)
[2021-02-27] MEDS ORDERED: Potassium Chloride Elixir 20 MEQ/15 ML UDC PO ONE (18:43)
[2021-02-27 20:05] LABS: Bilirubin,Urine Negative (Negative); Blood,Urine Negative (Negative); Calcium Oxalate Crystals,Urine Present per hpf; Clarity,Urine Turbid (Clear); Color,Urine Yellow (Yellow); Glucose,Urine (UA) 300 mg/dL (Normal); Hyaline Casts,Urine Many per lpf (None Seen); Ketones,Urine Negative (Negative); Leukocyte Esterase,Urine Negative (Negative); Mucus,Urine Many per lpf (None-Few); Nitrite,Urine Negative (Negative); PH,Urine 5.5 pH Units (5.0-8.0); Protein,Urine 30 mg/dL (Neg-Trace); RBC,Urine 0-3 per hpf (0-3); Specific Gravity,Urine 1.025 (1.010-1.025); Squamous Epithelial Cell,Urine Few per hpf (None-Few); Urobilinogen,Urine Normal (Normal)
[2021-02-27] MEDS ORDERED: Ondansetron 4 MG/2 ML VIAL IVP PRN (20:57)
[2021-02-27] MEDS ORDERED: Melatonin 3 MG TABLET PO PRN (20:57)
[2021-02-27] MEDS ORDERED: Naloxone 0.4 MG/ML INJ IVP PRN (20:57)
[2021-02-27] MEDS ORDERED: Acetaminophen 325 MG TABLET PO PRN (20:57)
[2021-02-27] MEDS ORDERED: D5% in Water 1,000 ML IVC PRN (20:59)
[2021-02-27] MEDS ORDERED: Dextrose Gel 15 GM/37.5 ML TUBE PO PRN ×2 (20:59)
[2021-02-27] MEDS ORDERED: *HR* Dextrose 50 % in Water (Vial) 50 ML VIAL IVP PRN (20:59)
[2021-02-27] MEDS ORDERED: *HR* Metoprolol 5 MG/5 ML VIAL IVP PRN (21:01)
[2021-02-27] MEDS: 0.9 % Sodium Chloride 1,000 ML IVC SCH (22:40)
[2021-02-27] MEDS: Apixaban 5 MG TABLET PO SCH (22:40)
[2021-02-27 23:15] LABS: Estimated Average Glucose 235 mg/dl; Hemoglobin A1C 9.8 %
[2021-02-27] MEDS: Insulin LISPRO 300 UNITS/3 ML VIAL SUBQ SCH (23:52)
[2021-02-28] MEDS ORDERED: *HR* LORazepam 2 MG/ML VIAL IVP PRN ×3 (00:07)
[2021-02-28] MEDS: DilTIAZem 50 MG/50 ML IV.SOLN IVC SCH ×2 (01:28→06:45)
[2021-02-28 03:33] LABS: Basophils % 0.3 %; Eosinophils # 0.1 K/mcL (0.0-0.6); Eosinophils % 1.2 %; Hematocrit 40.9 % (37.5-50.1); Hemoglobin 14.4 g/dL (12.9-16.9); Immature Granulocytes % 0.5 % (0-4); Lymphocytes # 3.2 K/mcL (0.6-4.6); Mean Corpuscular HGB Conc 35.2 g/dL (31.6-35.5); Mean Corpuscular Hemoglobin 29.2 pg (28.0-33.3); Mean Platelet Volume 10.7 fL (9.4-12.4); Monocytes # 0.8 K/mcL (0.0-1.3); Neutrophils # 6.5 K/mcL (1.6-8.9); Platelet Count 220 K/mcL (140-400); Red Blood Count 4.93 M/mcL (4.19-5.50); Red Cell Distribution Width 13.1 % (11.5-14.5); White Blood Count 10.7 K/mcL (4.3-11.1)
[2021-02-28 03:49] LABS: BUN/Creatinine Ratio 26 (6-26); Blood Urea Nitrogen 22 mg/dL (6-20); Calcium 9.1 mg/dL (8.6-10.3); Carbon Dioxide 24 mEq/L (23-29); Chloride 103 mEq/L (98-107); Glucose 198 mg/dL (70-105); Osmolality,Calculated 293 (280-300); Potassium 3.2 mEq/L (3.5-5.1); Sodium 137 mEq/L (136-145); eGFR For African Americans > 60 (> 60); eGFR For Non-African Americans > 60 (> 60)
[2021-02-28] MEDS ORDERED: Potassium Chloride Elixir 20 MEQ/15 ML UDC PO ONE (07:53)
[2021-02-28] MEDS ORDERED: Perflutren Lipid Microsphere 1.3 ML in 0.9 % Sodium Chloride 8.7 ML IVP PRN (07:54)
[2021-02-28] MEDS: Insulin LISPRO 300 UNITS/3 ML VIAL SUBQ SCH ×4 (08:09→19:54)
[2021-02-28] MEDS: Folic Acid 1 MG TABLET PO SCH (08:09)
[2021-02-28] MEDS: Thiamine (B-1) 100 MG TABLET PO SCH (08:09)
[2021-02-28] MEDS: Apixaban 5 MG TABLET PO SCH ×2 (08:09→20:00)
[2021-02-28] MEDS: 0.9 % Sodium Chloride 1,000 ML IVC SCH (08:10)
[2021-02-28 08:56] LABS: Thyroid Stimulating Hormone 0.749 mcIU/mL (0.340-5.600)
[2021-02-28] MEDS ORDERED: Aspirin 81 MG TAB.CHEW PO SCH (09:00)
[2021-02-28 13:36] LABS: Magnesium 1.5 mg/dL (1.6-2.6)
[2021-02-28] MEDS ORDERED: Insulin DETEMIR 100 UNIT/ML X5UNITS SUBQ SCH (21:00)
[2021-03-01 06:24] LABS: BUN/Creatinine Ratio 22 (6-26); Blood Urea Nitrogen 16 mg/dL (6-20); Calcium 8.9 mg/dL (8.6-10.3); Carbon Dioxide 29 mEq/L (23-29); Chloride 104 mEq/L (98-107); Glucose 113 mg/dL (70-105); Magnesium 1.3 mg/dL (1.6-2.6); Osmolality,Calculated 288 (280-300); Potassium 3.3 mEq/L (3.5-5.1); Sodium 138 mEq/L (136-145); eGFR For African Americans > 60 (> 60); eGFR For Non-African Americans > 60 (> 60)
[2021-03-01 06:57] VITALS: O2SAT 97
[2021-03-01] MEDS: Insulin LISPRO 300 UNITS/3 ML VIAL SUBQ SCH ×2 (07:45→12:20)
[2021-03-01] MEDS: Folic Acid 1 MG TABLET PO SCH (08:19)
[2021-03-01] MEDS: Thiamine (B-1) 100 MG TABLET PO SCH (08:19)
[2021-03-01] MEDS: Apixaban 5 MG TABLET PO SCH (08:19)
[2021-03-01] MEDS ORDERED: hydroCHLOROthiazide 25 MG TABLET PO SCH (09:00)
[2021-03-01] MEDS ORDERED: amLODIPine 5 MG TABLET PO SCH (09:00)
[2021-03-01 10:55] VITALS: BP 146/86; PULSE 76; TEMP 98.1
== END 2021-03-01 13:35 | disposition home or self-care (01) ==
LOC: 3BNU 15:57 → EMEROOARM 15:57 → SUATTDRO 21:43 → 3BNU 22:45
PROVIDERS: ADMIT Internal Medicine; ATTEND Registered Nurse

== ENCOUNTER 2022-01-26 18:22 | Observation (INO) ==
[2022-01-26] MEDS ORDERED: Ringers Solution, Lactated 1,000 ML IVC ONE (19:11)
[2022-01-26 19:37] LABS: Basophils % 0.4 %; Eosinophils # 0.1 K/mcL (0.0-0.6); Eosinophils % 1.4 %; Hematocrit 51.1 % (37.5-50.1); Hemoglobin 18.3 g/dL (12.9-16.9); Immature Granulocytes % 0.6 % (0-4); Lymphocytes % 30.3 %; Mean Corpuscular HGB Conc 35.8 g/dL (31.6-35.5); Mean Corpuscular Volume 81.1 fL (83.0-100.0); Mean Platelet Volume 10.3 fL (9.4-12.4); Monocytes # 0.8 K/mcL (0.0-1.3); Monocytes % 8.2 %; Neutrophils # 5.8 K/mcL (1.6-8.9); Platelet Count 266 K/mcL (140-400); Red Cell Distribution Width 12.7 % (11.5-14.5); Segmented Neutrophils % 59.1 %; White Blood Count 9.9 K/mcL (4.3-11.1)
[2022-01-26 19:53] LABS: BUN/Creatinine Ratio 15 (6-26); Blood Urea Nitrogen 17 mg/dL (6-20); Calcium 10.1 mg/dL (8.6-10.3); Carbon Dioxide 24 mEq/L (23-29); Chloride 93 mEq/L (98-107); Glucose 344 mg/dL (70-105); Osmolality,Calculated 291 (280-300); Potassium 3.4 mEq/L (3.5-5.1); Sodium 133 mEq/L (136-145); Troponin I < 0.03 ng/mL (< 0.04); eGFR For African Americans > 60 (> 60); eGFR For Non-African Americans > 60 (> 60)
[2022-01-26] MEDS ORDERED: Aspirin 325 MG TABLET PO ONE (21:11)
[2022-01-27] MEDS ORDERED: Perflutren Lipid Microsphere 1.3 ML in 0.9 % Sodium Chloride 8.7 ML IVP PRN (00:21)
[2022-01-27] MEDS ORDERED: D5% in Water 1,000 ML IVC PRN (00:24)
[2022-01-27] MEDS ORDERED: *HR* Dextrose 50 % in Water (Syg) 50 ML SYRINGE IVP PRN (00:24)
[2022-01-27] MEDS ORDERED: Dextrose Gel 15 GM/37.5 ML TUBE PO PRN ×2 (00:24)
[2022-01-27] MEDS ORDERED: Heparin 25,000UNIT/250ML 1/2NS 25,000 UNIT/250 ML IV.SOLN IVC SCH (00:30)
[2022-01-27] MEDS ORDERED: *HR* Heparin 5,000 UNIT/ML VIAL IVP PRN ×4 (00:30→00:51)
[2022-01-27] MEDS ORDERED: Acetaminophen 325 MG TABLET PO PRN (00:35)
[2022-01-27] MEDS ORDERED: Ondansetron 4 MG/2 ML VIAL IVP PRN (00:35)
[2022-01-27] MEDS ORDERED: Naloxone 0.4 MG/ML INJ IVP PRN (00:35)
[2022-01-27] MEDS ORDERED: Nitroglycerin 0.4 MG TAB.SUBL SL PRN (00:54)
[2022-01-27] MEDS ORDERED: Morphine Sulfate 2 MG/ML SYRINGE IVP PRN (00:55)
[2022-01-27] MEDS ORDERED: Potassium Chloride Elixir 20 MEQ/15 ML UDC PO ONE ×2 (01:10→12:29)
[2022-01-27] MEDS: Heparin 25,000UNIT/250ML 1/2NS 25,000 UNIT/250 ML IV.SOLN IVC SCH ×2 (02:46→19:38)
[2022-01-27 04:13] LABS: Bilirubin,Urine Negative (Negative); Blood,Urine Negative (Negative); Clarity,Urine Clear (Clear); Color,Urine Colorless (Yellow); Glucose,Urine (UA) >=1000 mg/dL (Normal); Ketones,Urine Negative (Negative); Leukocyte Esterase,Urine Negative (Negative); Mucus,Urine Few per lpf (None-Few); Nitrite,Urine Negative (Negative); Protein,Urine Negative (Neg-Trace); RBC,Urine 0-3 per hpf (0-3); Specific Gravity,Urine > 1.030 (1.010-1.025); Urobilinogen,Urine Normal (Normal); WBC,Urine 0-3 per hpf (0-3)
[2022-01-27] MEDS: Insulin LISPRO 300 UNITS/3 ML VIAL SUBQ SCH ×4 (05:34→17:12)
[2022-01-27] MEDS ORDERED: Regadenoson 0.4 MG/5 ML SYRINGE IVP ONE (07:00)
[2022-01-27] MEDS: Famotidine 20 MG TABLET PO SCH ×2 (07:57→17:13)
[2022-01-27] MEDS: Aspirin Enteric Coated 81 MG Tablet PO SCH (07:57)
[2022-01-27] MEDS ORDERED: hydroCHLOROthiazide 25 MG TABLET PO SCH (09:00)
[2022-01-27 09:51] LABS: Hematocrit 46.5 % (37.5-50.1); Mean Corpuscular HGB Conc 35.3 g/dL (31.6-35.5); Mean Corpuscular Hemoglobin 28.6 pg (28.0-33.3); Mean Platelet Volume 10.4 fL (9.4-12.4); Platelet Count 221 K/mcL (140-400); Red Blood Count 5.74 M/mcL (4.19-5.50); Red Cell Distribution Width 12.4 % (11.5-14.5); White Blood Count 7.3 K/mcL (4.3-11.1)
[2022-01-27] MEDS: amLODIPine 5 MG TABLET PO SCH (09:51)
[2022-01-27 09:52] LABS: Hemoglobin 16.4 g/dL (12.9-16.9)
[2022-01-27 10:21] LABS: Estimated Average Glucose 301 mg/dl; Hemoglobin A1C 12.1 %
[2022-01-27 10:25] LABS: BUN/Creatinine Ratio 20 (6-26); Blood Urea Nitrogen 17 mg/dL (6-20); Calcium 9.1 mg/dL (8.6-10.3); Carbon Dioxide 26 mEq/L (23-29); Chloride 99 mEq/L (98-107); Chol/HDL Ratio 6.2 (0-4.9); Cholesterol 149 mg/dL (< 200); Glucose 248 mg/dL (70-105); HDL Cholesterol 24 mg/dL (40-59); LDL Cholesterol,Calculated 47 mg/dL (< 100); Magnesium 1.9 mg/dL (1.6-2.6); Osmolality,Calculated 292 (280-300); Potassium 3.4 mEq/L (3.5-5.1); Sodium 136 mEq/L (136-145); Triglycerides 389 mg/dL (< 150); eGFR For African Americans > 60 (> 60); eGFR For Non-African Americans > 60 (> 60)
[2022-01-27] MEDS ORDERED: Metoprolol XL (24 HR) Succ 25 MG TAB.ER.24H PO SCH (12:30)
[2022-01-28 03:56] LABS: BUN/Creatinine Ratio 19 (6-26); Blood Urea Nitrogen 18 mg/dL (6-20); Calcium 9.2 mg/dL (8.6-10.3); Carbon Dioxide 24 mEq/L (23-29); Chloride 98 mEq/L (98-107); Glucose 261 mg/dL (70-105); Magnesium 1.9 mg/dL (1.6-2.6); Osmolality,Calculated 291 (280-300); Phosphorous 3.7 mg/dL (2.7-4.5); Potassium 3.4 mEq/L (3.5-5.1); Sodium 135 mEq/L (136-145); eGFR For African Americans > 60 (> 60); eGFR For Non-African Americans > 60 (> 60)
[2022-01-28] MEDS ORDERED: Apixaban 5 MG TABLET PO SCH (09:00)
[2022-01-28] MEDS ORDERED: hydroCHLOROthiazide 25 MG TABLET PO SCH (09:00)
[2022-01-28] MEDS ORDERED: NON-FORMULARY MEDICATION 1 EACH EACH (Amlodipine Besylate 10 MG Tablet) PO SCH (09:00)
[2022-01-28] MEDS ORDERED: Metoprolol XL (24 HR) Succ 25 MG TAB.ER.24H PO SCH (09:00)
[2022-01-28] MEDS: Insulin LISPRO 300 UNITS/3 ML VIAL SUBQ SCH (09:27)
[2022-01-28] MEDS: Aspirin Enteric Coated 81 MG Tablet PO SCH (09:29)
[2022-01-28] MEDS: Famotidine 20 MG TABLET PO SCH (09:29)
[2022-01-28] MEDS: amLODIPine 5 MG TABLET PO SCH (09:30)
[2022-01-28 10:31] VITALS: BP 137/89; PULSE 81; TEMP 97.4; O2SAT 96
== END 2022-01-28 12:02 | disposition home or self-care (01) ==
LOC: EMEROOARM 18:22 → 3BNU 18:22 → SUATTDRO 21:16 → 3BNU 22:00
PROVIDERS: ADMIT Internal Medicine; ATTEND Internal Medicine